=== PATIENT | female | born 1995 | race Caucasian/White ===

== ENCOUNTER 2022-10-06 19:37 | Outpatient (REF) | payer BC, SELFPAY ==
[2022-10-12 15:08] LABS: Age Gdln ACOG Testing Note (.); IGP, rfx Aptima HPV ASCU Note (.)
== END 2022-10-06 19:38 | disposition home or self-care (01) ==
LOC: LAB 19:37
PROVIDERS: Visit Provider Physician Assistant
DX: Z01.419 Encounter for gynecological examination (general) (routine) without abnormal findings (principal)
CPT/HCPCS: G0145

== ENCOUNTER 2023-01-13 08:08 | Outpatient (OUT) | payer BC, SELFPAY ==
[2023-01-13 08:53] LABS: Estimated Average Glucose 91 mg/dL; Glycohemoglobin A1C 4.8 % (4.5-6.2)
[2023-01-13 09:30] LABS: Alanine Aminotransferase 17 U/L (14-59); Albumin Globulin Ratio 0.7; Albumin Level 3.1 g/dL (3.4-5.0); Alkaline Phosphatase 44 U/L (46-116); Anion Gap 12.8; Aspartate Amino Transferase 11 U/L (15-37); BUN Creatinine Ratio 21.1; Bilirubin Total 0.6 mg/dL (0.2-1.0); Calcium 8.5 mg/dL (8.5-10.1); Carbon Dioxide 26.3 mmol/L (21.0-32.0); Chloride 102 mmol/L (98-107); Chol HDL Ratio 3.4; Cholesterol 148 mg/dL (<=200); Estimated GFR (African America >60 (>=60); Estimated GFR (Non-African Ame >60 (>=60); Globulin 4.7 g/dL; Glucose 77 mg/dL (74-106); HDL Cholesterol 43 mg/dL (40-60); Potassium 4.1 mmol/L (3.5-5.1); Sodium 137 mmol/L (136-145); Total Protein 7.8 g/dL (6.4-8.2); Triglycerides 206 mg/dL (<=150); VLDL CHOLESTEROL 41.2 mg/dL
[2023-01-13 09:46] LABS: TSH W/ REFLEX FT4 4.413 (0.358-3.740)
[2023-01-13 09:49] LABS: Free T4 1.26 ng/dL (0.76-1.46)
== END 2023-01-13 08:09 | disposition home or self-care (01) ==
LOC: LAB 08:11
DX: Z00.00 Encounter for general adult medical examination without abnormal findings (principal); E78.1 Pure hyperglyceridemia; E55.9 Vitamin D deficiency, unspecified; E03.9 Hypothyroidism, unspecified; E66.01 Morbid (severe) obesity due to excess calories
CPT/HCPCS: 36415; 80053; 80061; 82306; 83036; 84439; 84443

== ENCOUNTER 2023-05-05 08:58 | Outpatient (OUT) | payer BC, SELFPAY ==
--- OUTSIDE RECORDS SUMMARY | 2023-05-05 09:04 | XMS_ITS | CCD ---
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 Name Role Phone DR MELIA PROCTOR Admitting Unavailable DR MELIA PROCTOR Attending Unavailable [facility] [place] Primary Care Unavailable DR MELIA PROCTOR Consulting Unavailable CHELLE BORRERO Attending Unavailable Allergies Allergy Classification Reported Allergen(s) Allergy Type Date of Onset Reaction(s) Facility (1 source) Doxycycline Drug Allergy 09-27-2019 [facility] (1 source) Vitamin A Drug Allergy 09-27-2019 [facility] Problems Problem Classification Problem Date Documented Date Episodic/Chronic Immunizations and screening for infectious disease (1 source) Encounter for screening for human papillomavirus (HPV); Translations: [ENC SCREENING HUMAN PAPILLOMAVIRUS] Onset: 06-12-2021 Episodic Other screening for suspected conditions (not mental disorders or infectious disease) (4 sources) Encounter for screening for malignant neoplasm of cervix; Translations: [ENC SCREENING MALIG NEOPLASM CERV] Onset: 06-10-2021 Episodic Results Test Name Value Interpretation Reference Range Facil ity PAP ACOG PANEL 2: 21 to 29on 06-17-2021 . . Normal [facility] Comment on above: Performed By: #### [id number] #### [facility] [address] [address] [address] Jamil Caldwell Age Gdln ACOG Testing 21- Normal [facility] Comment on above: Performed By: #### [id number] #### [facility] [address] [address] [address] Jamil Caldwell DIAGNOSIS: Comment [facility] Comment on above: Result Comment: NEGA TIVE FOR INTRAEPITHELIAL LESION OR MALIGNANCY. Performed By: #### [id number] #### [facility] [address] [place] [address] Dr. Jamil Caldwell Methodology: Comment Normal [facility] Comment on above: Result Comment: This liquid based ThinPrep(R) pap test was screened with the use of an image guided system. Performed By: #### [id number] #### [facility] [address] [place] [address] Dr. Jamil Caldwell Note: Comment Normal [facility] Comment on above: Result Comment: The Pap smear is a screening test designed to aid in the detection of premalignant and malignant conditions of the uterine cervix. It is not a diagnostic procedure and should not be used as the sole means of detecting cervical cancer. Both false-positive and false-negative reports do occur. . Performed By: #### [id number] #### [facility] [address] [place] [address] Dr. 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 Jamil Caldwell Reflex Criteria: Comment Normal [facility] Comment on above: Result Comment: The HPV DNA reflex criteria were not met with this specimen result therefore, no HPV testing was performed. . Performed By: #### [id number] #### [facility] [address] [place] [address] Dr. Jamil Caldwell Specimen adequacy: Comment Normal [facility] Comment on above: Result Comment: Sati sfactory for evaluation. Endocervical and/or squamous metaplastic cells (endocervical component) are present. Performed By: #### 4 [id number] #### [facility] [address] [place] [address] Dr. Jamil Caldwell Formson 05-11-2021 Forms [id number] D:127 Normal [facility] Physician Referralon 022 Physician Referral [id number] CD:127 Normal [facility] Ambulatory Visit Summaryon 0 05-06-2021 Ambulatory Visit Summary CHELLE HOUSE :1995 Visit Date:05/06/2021 Ambulatory Visit Instructions Your Diagnosis Recurrent UTI Tests Performed Urnls Dip Stick Auto w/o Microscopy POC 61692 Your Care Team Attending Physician - SHRUTHI WILSON PA-C Primary Care Physician - Melia PROCTOR DO Referring Physician - Melia PROCTOR DO This Is Your Medications List Contact prescribing physician if questions or concerns cetirizine (Zyrtec) desogestrel-ethinyl estradiol ethinyl estradiol-norgestimate (Sprintec oral tablet) Procedures Performed None. Discharge Vitals Heart Rate (Peripheral) 79 Respiratory Rate 16 Blood Pressure 153/93 Height 170.0 cm Height 170 cm Weight 116.9 kg Weight 116.9 kg BMI 40.45 What to do next You Need to Schedule the Following Appointments Follow Up with SHRUTHI WILSON PA-C, URL When: Where: [address] [place] [address] [facility] (1) Medications What How Much When Instructions Unchanged cetirizine (Zyrtec) 10 Milligram By Mouth Every day Contact prescribing physician if questions or concerns Unchanged desogestrel-ethinyl estradiol By Mouth Every day Contact prescribing physician if questions or concerns Unchanged ethinyl estradiol-norgestimate (Sprintec oral tablet) 1 Tablets By Mouth Every day Contact prescribing physician if questions or concerns Test Results Urnls Dip Stick Auto w/o Microscopy POC 20724 (05/06/2021) Bilirubin Urine Dipstick - Negative Blood Urine Dipstick - Negative Glucose Urine Dipstick - Negative Ketones Urine Dipstick - Negative Leukocytes Urine Dipstick - Negative Nitrite Urine Dipstick - Negative Protein Urine Dipstick - Negative Specific [place] Urine Dipstick - 1.010 Urine Appearance Urine Dipstick - Clear Urine Color Urine Dipstick - Yellow Urobilinogen Urine Dipstick - Normal 0.2-1 EU/dl pH Urine Dipstick - 6.5 Allergies tetracyclines (Blindness - both eyes) vitamin A (Nausea and vomiting) Problems Ongoing - Any problem that you are currently receiving treatment for. 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 The urinary tract includes the kidneys, ureters, bladder, and urethra. These organs make, store, and get rid of urine in the body. Your health care provider may use other names to describe the infection. An upper UTI affects the ureters and kidneys (pyelonephritis). A lower UTI affects the bladder (cystitis) and urethra (urethritis). What are the causes? Most urinary tract infections are caused by bacteria in your genital area, around the entrance to your urinary tract (urethra). These bacteria grow and cause inflammation of your urinary tract. What increases the risk? You are more likely to develop this condition if: ? You have a urinary catheter that stays in place (indwelling). ? You are not able to control when you urinate or have a bowel movement (you have incontinence). ? You are female and you: ? Use a spermicide or diaphragm for control. ? Have low estrogen levels. ? Are . ? You have certain genes that increase your risk (genetics). ? You are sexually active. ? You take antibiotic medicines. ? You have a condition that causes your flow of urine to slow down, such as: ? An enlarged prostate, if you are male. ? Blockage in your urethra (stricture). ? A kidney stone. ? A nerve condition that affects your bladder control (neurogenic bladder). ? Not getting enough to drink, or not urinating often. ? You have certain medical conditions, such as: ? Diabetes. ? A weak disease-fighting system (immunesystem). ? Sickle cell disease. ? Gout. ? Spinal cord injury. What are the signs or symptoms? Symptoms of this condition include: ? Needing to urinate right away (urgently). ? Frequent urination or passing small amounts of urine frequently. ? Pain or burning with urination. ? Blood in the urine. ? Urine that smells bad or unusual. ? Trouble urinating. ? Cloudy urine. ? Vaginal discharge, if you are female. ? Pain in the abdomen or the lower back. You may also have: ? Vomiting or a decreased appetite. ? Confusion. ? Irritability or tiredness. ? A fever. ? Diarrhea. The first symptom in older adults may be confusion. In some cases, they may not have any symptoms until the infection has worsened. How is this diagnosed? This condition is diagnosed based on your medical history and a physical exam. You may also have other tests, including: ? Urine tests. ? Blood tests. ? Tests for sexually transmitted infections (STIs). If you have had more than one UTI, a cystoscopy or imaging studies may be done to deter (more content not included)... Normal [facility] Patient Educationon 05-07-19 Patient Education Obstetrics and Gynecology Urinary Tract Infection, Adult A urinary tract infection (UTI) is an infection of any part of the urinary tract. The urinary tract includes the kidneys, ureters, bladder, and urethra. These organs make, store, and get rid of urine in the body. Your health care provider may use other names to describe the infection. An upper UTI affects the ureters and kidneys (pyelonephritis). A lower UTI affects the bladder (cystitis) and urethra (urethritis). What are the causes? Most urinary tract infections are caused by bacteria in your genital area, around the entrance to your urinary tract (urethra). These bacteria grow and cause inflammation of your urinary tract. What increases the risk? You are more likely to develop this condition if: ? You have a urinary catheter that stays in place (indwelling). ? You are not able to control when you urinate or have a bowel movement (you have incontinence). ? You are female and you: ? Use a spermicide or diaphragm for control. ? Have low estrogen levels. ? Are . ? You have certain genes that increase your risk (genetics). ? You are sexually active. ? You take antibiotic medicines. ? You have a condition that causes your flow of urine to slow down, such as: ? An enlarged prostate, if you are male. ? Blockage in your urethra (stricture). ? A kidney stone. ? A nerve condition that affects your bladder control (neurogenic bladder). ? Not getting enough to drink, or not urinating often. ? You have certain medical conditions, such as: ? Diabetes. ? A weak disease-fighting system (immunesystem). ? Sickle cell disease. ? Gout. ? Spinal cord injury. What are the signs or symptoms? Symptoms of this condition include: ? Needing to urinate right away (urgently). ? Frequent urination or passing small amounts of urine frequently. ? Pain or burning with urination. ? Blood in the urine. ? Urine that smells bad or unusual. ? Trouble urinating. ? Cloudy urine. ? Vaginal discharge, if you are female. ? Pain in the abdomen or the lower back. You may also have: ? Vomiting or a decreased appetite. ? Confusion. ? Irritability or tiredness. ? A fever. ? Diarrhea. The first symptom in older adults may be confusion. In some cases, they may not have any symptoms until the infection has worsened. How is this diagnosed? This condition is diagnosed based on your medical history and a physical exam. You may also have other tests, including: ? Urine tests. ? Blood tests. ? Tests for sexually transmitted infections (STIs). If you have had more than one UTI, a cystoscopy or imaging studies may be done to determine the cause of the infections. How is this treated? Treatment for this condition includes: ? Antibiotic medicine. ? Kggt-gmu-jeajaxl medicines to treat discomfort. ? Drinking enough water to stay hydrated. If you have frequent infections or have other conditions such as a kidney stone, you may need to see a health care provider who specializes in the urinary tract (urologist). In rare cases, urinary tract infections can cause sepsis. Sepsis is a life-threatening condition that occurs when the body responds to an infection. Sepsis is treated in the hospital with IV antibiotics, fluids, and other medicines. Follow these instructions at home: Medicines ? Take kohy-daq-sswkyam and prescription medicines only as told by your health care provider. ? If you were prescribed an antibiotic medicine, take it as told by your health care provider. Do not stop using the antibiotic even if you start to feel better. General instructions ? Make sure you: ? Empty your bladder often and completely. Do not hold urine for long periods of time. ? Empty your bladder after sex. ? Wipe from front to back after a bowel movement if you are female. Use each tissue one time when you wipe. ? Drink enough fluid to keep your urine pale yellow. ? Keep all follow-up visits as told by your health care provider. This is important. Contact a health care provider if: ? Your symptoms do not get better after 1?2 days. ? Your symptoms go away and then return. Get help right away if you have: ? Severe pain in your back or your lower abdomen. ? A fever. ? Nausea or vomiting. Summary ? A urinary tract infection (UTI) is an infection of any part of the urinary tract, which includes the kidneys, ureters, bladder, and urethra. ? Most urinary tract infections are caused by bacteria in your genital area, around the entrance to your urinary tract (urethra). ? Treatment for this condition often includes antibiotic medicines. ? If you were prescribed an antibiotic medicine, take it as told by your health care provider. Do not stop using the antibiotic even if you start to feel better. ? Keep all follow-up visits as told by your health care provider. This is important. This in (more content not included)... Normal [facility] Urology Office/Clinic Noteon 05-06-2021 Urology Office/Clinic Note Chief Complaint New Patient Recurrent UTI HPI Staff Chelle is here today as a new patient referred for recurrent UTI's. Had two UTI, first one in January and the second one middle of March the only symptom she had for both of them was bad back pain. Pt states she did have an ovarian cyst back in July that burst and she said she had one other one after that but not as bad. Dysuria: _Denies Incomplete bladder emptying: _Denies Hematuria: _Denies Frequency: _Every 2-3 hours. Urgency: _Denies Nocturia: _1 time a night due to the urge Stream: _steady stream Leaking: _Denies Post void dripping: _Denies Wearing pads/ Depends: _Denies Urge incontinence: _Denies Stress incontinence: _Denies Incontinence without Sensory Awareness: _Denies Abdominal pain: _Yes sometimes will have pelvic pain last time was in March. Flank pain: _Yes last time she felt the pain was in March Sexual complaints: _ History of Present Illness Tests reviewed: reviewed UA I have reviewed the previous health record information and history for this patient from Dr. Proctor. I have reviewed and verified the staff HPI to be accurate for this encounter. There have been no associated fever, chills, flank pain, or blood in the urine. Denies any urinary infections since last encounter. Review of Systems PHQ Score Initial Depression Screen Score: 0 ROS - Provider Constitutional: denies weight loss, denies hot flashes. Eyes: denies eye problems. Gastrointestinal: denies nausea, denies vomiting. Cardiovascular: denies chest pain or angina. Integumentary: no dryness Musculoskeletal: denies musculoskeletal symptoms. ENMT: denies otolaryngeal symptoms. Respiratory: no shortness of breath. Heme/Lymph: denies easy bleeding tendency, denies easy bruising tendency. Psychiatric: no confusion, no anxiety. Genitourinary: See HPI. Physical Exam Vitals & Measurements HR: 79(Peripheral) RR: 16 BP: 153/93 HT: 170.0 cm HT: 170 cm WT: 116.9 kg WT: 116.9 kg BMI: 40.45 General Appearance: alert , no acute distress, well nourished, well developed female. Head: normocephalic . Eyes: normal orbit and globe. ENMT: normal examination of external ears. Chest: Lungs CTA, respirations non labored . Cardiovascular: regular rate and rhythm. Abdomen: soft, non distended, no tenderness, no mass or organomegaly, no hernia. Genitourinary: bladder nonpalpable, no flank tenderness. Lymph Nodes: unremarkable palpation of the cervical area. Skin: warm, dry, no bruising. Psychiatric: cooperative, affect appropriate for age, normal judgement, euthymic mood. Assessment/Plan 1. Recurrent UTI (N39.0: Urinary tract infection, site not specified) Patient state she has had two infections recently first one in January and the second one middle of March after never having one previously in her lifetime. The only symptom she had for both of them was severe bilateral flank pain. No fever or chills, malaise or myalgia, nausea or vomiting. Resolved with oral abx. No urine cx available for review. Current UA shows no microhematuria and no signs of infection. PVR is low today. Today we discussed the following methods to decrease frequency of UTIs: 1) increase fluids 2) I discussed that there is evidence that herbal supplements may help - cranberry, probiotics, and d-mannose. 3) proper hygiene habits (wipe front to back every time, avoid baths & hot tubs, avoid any scented ELECTRONIC SYSTEMS TECHNICIAN products, urinate after sexual activity, etc) advised to change clothes quickly after exercising, especially on her [place] Pt will call next time she encounters these symptoms to allow us to send UA for culture. She will try measures noted above. She will watch for connection btwn UTI and sexual activity. If UTIs are culture proven and continue, we will need to proceed with further eval (rule out stones, possible cysto, etc). If pain episodes persist without cx-proven UTI then that will lead us down a different evaluation pathway. *Pt does mention that her sister has a rare autoimmune condition MPGN type II (membranoproliferative glomerulonephritis). Will keep this in mind. Current UA is negative for protein and blood.* Follow-up With When Contact Information SHRUTHI WILSON PA-C, URL [address] [place] [address] Business (1) Additional Instructions: Patient Education Urinary Tract Infection, Adult I, Luz Marina Soriano , personally scribed for Shruthi Wilson on 05/06/2021 15:17:24. . Documentation recorded by the scribmoira Soriano accurately reflects the services(s) I performed and decisions made by me. Authenticated by Shruthi Wilson PA-C on 05/06/2021 15:38:19. 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 Medications desogestrel-e (more content not included)... Normal [facility] Comment on above: Result Comment: Elec tronically Signed By: SHRUTHI WILSON PA-C\.br\Date and Time Signed: 05/06/21 15:39 EST\.br\Electronically Co-Signed By: Luz Marina Soriano\.br\Date and Time Co-Signed: 05/06/21 15:17 EST Encounters Encounter Date Encounter Type Care Provider Facility Start: 01-24-2023 End: 01-24-2023 ambulatory CHELLE BORRERO Not Available Start: 06-10-2021 End: 06-10-[address] MELIA PROCTOR Facility: Payers Date Payer Category Payer Unknown [id number] 1995 Unknown [id number] 1995 Unknown [id number] 1959 Unknown [id number] Summary Purpose Family History No Family History Records FoundNo Family History Records FoundNo Family History Records Found Advance Directives No Advanced Directives Records FoundNo Advanced Directives Records FoundNo Advanced Directives Records Found Additional Source Comments INFORMATION SOURCE (unrecogn ized section and content) DATE CREATED AUTHOR 05/17/2021 [facility] DATE CREATED AUTHOR AUTHOR'S ORGANIZ ATION 06/23/2021 [facility] DATE CREATED AUTHOR AUTHOR'S ORGANIZ ATION 01/24/2023 [facility] FOR RECORDS PERTAINING TO PATIENTS WHO ARE OR HAVE BEEN ENROLLED IN A CHEMICAL DEPENDENCY/SUBSTANCEABUSE PROGRAM, SOME INFORMATION MAY BE OMITTED. This clinical summary was aggregated from multiple sources. Caution should be exercised in using it in the provision of clinical care. This summary normalizes information from multiple sources, and as a consequence, information in this document may materially change the coding, format and clinical context of patient data. In addition, data may be omitted in some cases. CLINICAL DECISIONS SHOULD BE BASED ON THE PRIMARY CLINICAL RECORDS. [facility] [employer] [facility]. provides no warranty or guarantee of the accuracy or completeness of information in this document.
[2023-05-05 12:50] LABS: TSH W/ REFLEX FT4 3.611 uIU/mL (0.358-3.740)
== END 2023-05-05 08:59 | disposition home or self-care (01) ==
LOC: LAB 08:59
DX: E03.9 Hypothyroidism, unspecified (principal)
CPT/HCPCS: 36415; 84443

== ENCOUNTER 2023-10-17 20:27 | Outpatient (REF) | payer BC, SELFPAY ==
--- OUTSIDE RECORDS SUMMARY | 2023-10-17 20:29 | XMS_ITS | CCD ---
Author Organization [facility] CliniSyal Care Team Providers Care Maintenance Tech Name Role Phone DR MELIA PROCTOR Admitting Unavailable FABRICE, DR CÁRDENAS Attending Unavailable MIS, DR COLLINS Primary Care Unavailable DR MELIA PROCTOR Consulting Unavailable SARAH BORRERO Attending Unavailable ADAIR, Attending Unavailable PETITTHoney, RELL Hill Attending Unavailable SARAH BORRERO Attending Unavailable PETITTHoney, RELL Hill Attending Unavailable PETITTHoney, RELL Hill Attending Unavailable MELIA PROCTOR Attending Unavailable Allergies Allergy Classification Reported Allergen(s) Allergy Type Date of Onset Reaction(s) Facility (1 source) Doxycycline Drug Allergy 09-27-2019 [facility] Repository (1 source) Vitamin A Drug Allergy 09-27-2019 [facility] Problems Problem Classification Problem Date [...] 21 to 29on 06-17-2021 . . Normal [facility] Comment on above: Performed By: #### [id number] #### [facility] [address] [address] [address] Jamil Caldwell Age Gdln ACOG Testing - Normal [facility] Comment on above: Performed By: #### [id number] #### [facility] [id number] Jamil Caldwell DIAGNOSIS: Comment [facility] Comment on above: Result Comment: NEGA TIVE FOR INTRAEPITHELIAL LESION OR MALIGNANCY. Performed By: #### 4 [id number] #### [facility] [address] [place] [address] Dr. Jamil Caldwell Methodology: Comment [facility] Comment on above: Result Comment: This liquid based ThinPrep(R) pap test was screened with the use of an image guided system. Performed By: #### [id number] #### [facility] [address] [place] [address] Dr. Jamil Caldwell Note: Comment Normal [facility] Comment on above: Result Comment: The Pap smear is a screening test designed to aid in the detection of premalignant and malignant conditions of the uterine cervix. It is not a diagnostic procedure and should not be used as the sole means of detecting cervical cancer. Both false-positive and false-negative reports do occur. . Performed By: #### [id number] #### [facility] [address] [place] [address] Dr. Jamil Caldwell Performed by: Comment Normal [facility] Comment on above: Result Comment: Eve Xiao Director Of Labor And Delivery (ASCP) Performed By: #### 4 [id number] #### [facility] [address] [place] [address] Dr. Jamil Caldwell Reflex Criteria: Comment [facility] Comment on above: Result Comment: The HPV DNA reflex criteria were not met with this specimen result therefore, no HPV testing was performed. . Performed By: #### 4 [id number] #### [facility] [address] [place] [address] Dr. Jamil Caldwell Specimen adequacy: Comment Normal [facility] Comment on above: Result Comment: Sati sfactory for evaluation. Endocervical and/or squamous metaplastic cells (endocervical component) are present. Performed By: #### 4 [id number] #### [facility] [address] [place] [address] Dr. Jamil Caldwell Formson 05-11-2021 Forms [id number] D:127 Normal [facility] Physician Referralon 022 Physician Referral [id number] CD:[address] [facility] Ambulatory Visit Summaryon 0 05-06-2021 Ambulatory Visit Summary SARAH HOUSE :1995 Visit Date:05/06/2021 Ambulatory Visit Instructions Your Diagnosis Recurrent UTI Tests Performed Urnls Dip Stick Auto w/o Microscopy POC 96341 Your Care Team Attending Physician - VAISHALI WILSON PA-C Primary Care Physician - Melia [...] Schedule the Following Appointments Follow Up with VAISHALI WILSON PA-C, URL [facility]: [facility] [address] [facility] [place] [address] Fingerprint (1) Medications What How Much When Instructions [...] Urnls Dip Stick Auto w/o Microscopy POC 59535 (05/06/2021) Bilirubin Urine Dipstick - Negative Blood Urine Dipstick - Negative Glucose Urine Dipstick - Negative Ketones Urine Dipstick - Negative Leukocytes Urine Dipstick - Negative Nitrite Urine Dipstick - Negative Protein Urine Dipstick - Negative Specific [place] Urine Dipstick - 1.010 Urine Appearance Urine [...] deter (more content not included)... Normal [facility] Patient Educationon 05-07-19 Patient Education Obstetrics [...] this condition includes: ? Antibiotic medicine. ? Hblz-obl-ggorpgf medicines to treat discomfort. ? Drinking enough [...] these instructions at home: Medicines ? Take ezxn-jay-luuvkti and prescription medicines only as told by [...] This in (more content not included)... Normal [facility] Urology Office/Clinic Noteon 05-06-2021 Urology Office/Clinic Note Chief Complaint New Patient Recurrent UTI HPI Staff is here today as a new patient [...] baths & hot tubs, avoid any scented [employer] products, urinate after sexual activity, etc) advised [...] and blood.* Follow-up With When Contact Information VAISHALI WILSON PA-C, URL [address] [facility] [address] Business (1) Additional Instructions: Patient Education Urinary Tract Infection, Adult I, Luz Marina Soriano , personally scribed for Vaishali Wilson on 05/06/2021 15:17:24. . Documentation recorded by the scribmoira Soriano accurately reflects the services(s) I performed and decisions made by me. Authenticated by Vaishali Wilson PA-C on 05/06/2021 15:38:19. 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 Medications desogestrel-e (more content not included)... Normal [facility] Comment on above: Result Comment: Elec tronically Signed By: VAISHALI WILSON PA-C\.br\Date and Time Signed: 05/06/21 15:39 EST\.br\Electronically Co-Signed By: Luz Marina Soriano\.br\Date and Time Co-Signed: 05/06/21 15:17 EST Encounters Encounter Date Encounter Type Care Provider Facility Start: 10-17-2023 End: 10-17-2023 ambulatory MELIA FABRICE Not Available Start: 09-22-2023 End: 09-22-2023 ambulatory RELL A PETITTI Not Available Start: 09-07-2023 End: 09-07-2023 ambulatory RELL A PETITTI Not Available Start: 08-17-2023 End: 08-17-2023 ambulatory SARAH BORRERO Not Available Start: 08-01-2023 End: 08-01-2023 ambulatory RELL CRAMER Not Available Start: 07-13-2023 End: 07-13-2023 ambulatory SARAH BORRERO Not Available Start: 01-24-2023 End: 01-24-2023 ambulatory SARAH BORRERO Not Available Start: 06-10-2021 End: 06-10-[address] MELIA PROCTOR Facility: Payers Date Payer Category Payer Unknown [id number] 1995 Unknown [id number] 2.16.84 [id number] 1995 Unknown [id number] 2.16.84 [id number] 1995 Unknown [id number] 2.16.84 [id number] 1995 Unknown [id number] 2.16.84 [id number] 1995 Unknown [id number] 2.16.84 [id number] 1995 Unknown [id number] 2.16.84 [id number] 1995 Unknown [id number] 2.16.84 [id number] 1995 Unknown [id number] [id number] .[id number] 1959 Unknown [id number] Summary Purpose Family History No Family History Records FoundNo Family History Records FoundNo Family History Records Found Advance Directives No Advanced Directives Records FoundNo Advanced Directives Records FoundNo Advanced Directives Records Found Additional Source Comments INFORMATION SOURCE (unrecogn ized section and content) DATE CREATED AUTHOR 05/17/2021 [facility] DATE CREATED AUTHOR AUTHOR'S ORGANIZ ATSANIA 06/23/2021 [facility] DATE CREATED AUTHOR AUTHOR'S JAMES NEVAREZ 10/17/[address] [facility] d[facility] Specialists EPIC FOR RECORDS PERTAINING TO PATIENTS WHO ARE [...] BE BASED ON THE PRIMARY CLINICAL RECORDS. [facility]. provides no warranty or guarantee of the accuracy or completeness of information in this document.
[2023-10-21 19:10] LABS: Age Gdln ACOG Testing Note (.); IGP, rfx Aptima HPV ASCU Note (.)
== END 2023-10-17 20:28 | disposition home or self-care (01) ==
LOC: LAB 20:27
PROVIDERS: Visit Provider Obstetrics & Gynecology
DX: Z01.419 Encounter for gynecological examination (general) (routine) without abnormal findings (principal)
CPT/HCPCS: 88175

== ENCOUNTER 2025-02-02 07:55 | Outpatient (OUT) | payer BC, SELFPAY ==
--- OUTSIDE RECORDS SUMMARY | 2025-02-02 08:00 | XMS_ITS | CCD ---
Author Organization [facility] Care Team Providers Care Sociology Teacher Name Role Phone DR RODRIGUE PROCTOR Admitting Unavailable ESTHELA, DR CÁRDENAS Attending Unavailable MISC, DR COLLINS Primary Care Unavailable DR RODRIGUE PROCTOR Consulting Unavailable Kampfer WAREHOUSE FOREMAN, Chelle Unavailable Vaishali Reyes MD Primary Care Provider RELL CRAMER Attending Unavailable KAMPFER, CHELLE Attending Unavailable KAMPFER, CHELLE Referring Unavailable AYDE KIM Attending Unavailable KAMPFER, CHELLE Referring Unavailable AYDE KIM Attending Unavailable KAMPFER, CHELLE Referring Unavailable PRESLEY ALARCON Attending Unavailable KAMPFER, CEHLLE Referring Unavailable KAMPFER, CHELLE Attending Unavailable PRESLEY ALARCON Attending Unavailable KAMPFER, CHELLE Referring Unavailable MILLY OSMAN Attending Unavailable KAMPFER, CHELLE Referring Unavailable KAMPFER, CHELLE Referring Unavailable Unavailable Primary Care Provider Unavailjosé antonio e Chelle Santiago APRN Primary Care Provider KAMPFER, CHELLE Referring Unavailable VILJOEN, STEPHANUS Attending Unavailable VILJOEN, STEPHANUS Admitting Unavailable VILJOEN, STEPHANUS Attending Unavailable KAMPFER, CHELLE Primary Care Unavailable VILJOEN, STEPHANUS Referring Unavailable KAMPFER, CHELLE Primary Care Unavailable VILJOEN, STEPHANUS Attending Unavailable VILJOEN, STEPHANUS Referring Unavailable VILJOEN, STEPHANUS Attending Unavailable KAMPFER, CHELLE Primary Care Unavailable VILJOEN, STEPHANUS Referring Unavailable VILJOEN, STEPHANUS Attending Unavailable KAMPFER, CHELLE Primary Care Unavailable VILJOEN, STEPHANUS Referring Unavailable Allergies Allergy ClassificationReported Allergen(s)Allergy TypeDate of OnsetReaction(s) Facility (1 source)DoxycyclineDrug Rbwxrpv82-10-1009Yts [facility] Repository (1 source)Vitamin ADrug Qvgwqlm99-83-7189Oig [facility] Repository (20 sources)DoxycyclineDrug Zcywueo67-68-1561[facility] Work Phone: (20 sources)Lactose (non-medical use)Allergy to dmwuzfieg66-21-7253Y[facility] (20 sources)TetracyclineDrug Mtfioxd05-79-2917EslbyOSWL [facility] (20 sources)Vitamin ADrug Wmoprbc12-52-6047CX[facility] (2 sources)Tetracycline (class of antibiotic)Propensity to adverse reactions to rsgd06-13-5209Ysmhaa ChangeSumma Health Medications Current Medications MedicationDrug Class(es)DatesSig (Normalized)Sig (Original)acetaminophen 500 mg oral tablet (19 sources)Start: 13-26-5728qqln 1 tablet by mouth every six hours as needed acetaminophen 500 MG tablet Take 1 tablet by mouth every 6 hours as needed for Mild Pain. 30 iedagu1612/18/2024 ActiveStart: 12-18-2024 End: 67-40-6125kpkg 1 tablet by mouth every four hours as wuejos442 mg, Oral, EVERY 4 HOURS NEEDED, Starting on Tue12/18/24 at 1027, Until Tue12/18/24 at 1442, Mild Pain, Maximum dose of acetaminophen is 4000 mg from all sources in 24 hours., Post-op/Post-ProcStart: 12-18-2024 End: 74-14-8138kcnl 4000 mg by mouth every twenty-four eqgpr430 mg, Oral, ONCE, 1 dose, On Tue12/18/24 at 0530, Maximum dose of acetaminophen is 4000 mg from a ll sources in 24 hours., Pre-op/Pre-Procacetaminophen (Tylenol) 160 MG chewable tablet Chew 250 mg if needed for mild pain ActivebuPROPion hydrochloride 100 mg oral tablet (20 sources)AminoketoneStart: 58-17-6167durv 1 tablet by mouth once daily buPROPion (Wellbutrin) 100 MG tablet Indications: Morbid obesity (CMS-HCC) TAKE 1 TABLET BY MOUTH ONCE A DAY *TAKE WITH NALTREXONE* 90 tablet 1 11/05/2024 ActiveStart: 31-80-9748ctwy 1 tablet by mouth once dailybuPROPion (Wellbutrin) 100 MG tablet Indications: Morbid obesity (CMS-HCC) TAKE 1 TABLET BY MOUTH ONCE A DAY *TAKE WITH NALTREXONE* 30 tablet 1 08/06/2024 ActiveStart: 49-44-1368yctt 1 tablet by mouth once dailybuPROPion (Wellbutrin) 100 MG tablet Indications: Morbid obesity (CMS/HCC) TAKE 1 TABLET BY MOUTH ONCE A DAY *TAKE WITH NALTREXONE* 30 tablet 1 06/13/2024 ActiveStart: 10-04-2023 End: 77-07-2273nfsh 1 tablet by mouth once dailybuPROPion (Wellbutrin) 100 MG tablet Indications: Morbid obesity (CMS/HCC) TAKE 1 TABLET BY MOUTH ONCE A DAY *TAKE WITH NALTREXONE* 30 tablet 1 04/13/2024 06/13/2024 Discontinuedcetirizine hydrochloride 10 mg oral tablet (20 sources)Histamine-1 Receptor Antagonisttake 1 tablet by mouth once daily Cetirizine 10 MG tablet Take 1 tablet by mouth daily. Activecyclobenzaprine hydrochloride 10 mg oral tablet (13 sources)Muscle RelaxantStart: 69-94-6808tykr 1 tablet by mouth three times daily as needed for muscle spasmsCyclobenzaprine 10 MG tablet Take 1 tablet by mouth 3 times daily as needed for Muscle spasms. 15 tablet 12/18/2024 Active Start: 11-05-2024 End: 79-14-3466Fvrpgjaknstgvla 10 MG tablet Take 1 tablet by mouth as needed. 11/05/2024 Activedesogestrel 0.15 mg / ethinyl estradiol 0.03 mg oral tablet (20 sources)Progestin, EstrogenStart: 48-87-2334Lthy 0.15-30 MG-MCG tablet Indications: Encounter for surveillance of contraceptive pills TAKE 1 TABLET BY MOUTH EVERY DAY *ON FOR 4 MONTHS, OFF 1 WEEK, THEN RESTART* 28 tablet 12 10/26/2024 ActiveStart: 05-26-2022 End: 84-63-4778ipzksfsocoq-ethinyl estradiol (Apri) 0.15-30 MG-MCG tablet Indications: Encounter for surveillance of contraceptive pills Take 1 tablet by mouth Daily 28 tablet 12 10/05/2023 10/03/2024 ActiveDesogestrel-Ethinyl Estradiol (APRI PO) Take by mouth at bedtime. Activeibuprofen 20 mg/ml oral suspension (3 sources)Nonsteroidal Anti-inflammatory Drugtake 400 mg by mouth every six hours as neededIbuprofen 200 MG/10ML oral suspension Take 20 mL by mouth every 6 hours as needed for Mild Pain. Activemethocarbamol 500 mg oral tablet (9 sources)Muscle RelaxantStart: 11-14-2024 End: 70-35-8690wljk 1 tablet by mouth four times daily as needed for muscle spasmsmethocarbamol (Robaxin) 500 MG tablet Indications: Acute bilateral low back pain with right-sided sciatica Take 1 tablet (500 mg) by mouth 4 (four) times a day as needed for muscle spasms for up to 5days 20 tablet 11/14/2024 Activenaltrexone hydrochloride 50 mg oral tablet (20 sources)Opioid AntagonistStart: 07-13-2023 End: 58-62-7069juoj 0.5 tablet by mouth once dailynaltrexone (Depade) 50 MG tablet Indications: Morbid obesity ([facility]-HCC) Take 0.5 tablets (25 mg) by mouth Daily Take with bupropion morning dose 45 tablet 1 01/20/2024 Activetake 1 tablet by mouth every twenty-four hoursNaltrexone 50 MG tablet Take 1 tablet by mouth every evening. ActiveoxyCODONE hydrochloride 5 mg oral tablet (2 sources)Opioid AgonistStart: 12-18-2024 End: 33-42-6849schx 1 tablet by mouth every six hours as neededoxyCODONE 5 MG tablet Indications: Obesity, morbid, BMI 40.0-49.9 Take 1 tablet by mouth every 6 hours as needed for up to 7 days. 15 tablet 12/18/2024 12/25/2024 ActiveStart: 12-18-2024 End: 28-48-0580atzn 1 dose by mouth once5 mg, Oral, ONCE NEEDED, 1 dose, Starting on Tue12/18/24 at 0918, Until Tue12/18/24 at 1442, Moderate Pain, RecoverypredniSONE 20 mg oral tablet (6 sources)Start: 11-05-2024 End: 26-73-2740wbpr 1 tablet by mouth in the morningpredniSONE (Deltasone) 20 MG tablet Indications: Acute bilateral low back pain with right-sided sciatica Take 1 tablet (20 mg) by mouth in the morning and 1 tablet (20 mg) before bedtime. Do all thisfor 5 days. 10 tablet 11/05/2024 11/10/2024 Active Completed/Discontinued Medications MedicationDrug Class(es)DatesSig (Normalized)Sig (Original)Acetaminophen / oxyCODONE (1 source)Opioid AgonistStart: 12-18-2024 End: 56-27-0122tjyj 1 tablet by mouth every four hours as neededoxyCODONE- acetaminophen (PERCOCET) 5-325 MG per tablet 1 tabletaprepitant 40 mg oral capsule (1 source)Substance P/Neurokinin-1 Receptor AntagonistStart: 12-18-2024 End: 48-62-347066 mg, Oral, ONCE, 1 dose, On Tue12/18/24 at 0530, Administer 40 mg (1 capsule) ONCE at least 30 minutes prior to induction of anesthesia. Swallow capsules whole. Do NOT crush, chew, or open., Pre-op/Pre-Procaspirin 325 mg oral tablet (3 sources)Platelet Aggregation Inhibitor, Nonsteroidal Anti-inflammatory Drug End: 33-00-8565zjnc 1 tablet by mouth once dailyAspirin 325 MG tablet Take 1 tablet by mouth daily. 12/18/2024 Discontinued (Stop Taking at Discharge)calcium chloride 0.0014 meq/ml / potassium chloride 0.004 meq/ml / sodium chloride 0.103 meq/ml / sodium lactate 0.028 meq/ml injectable solution (2 sources)Start: 12-18-2024 End: 25-21-0395Umueercifox, at 20 mL/hr, CONTINUOUS, Starting on Tue12/18/24 at 0930, Until Tue12/18/24 at 1442,Recovery1 ml diphenhydrAMINE hydrochloride 50 mg/ml cartridge (1 source)Histamine-1 Receptor AntagonistStart: 12-18-2024 End: 35-12-695991.5 mg, Intravenous, EVERY 30 MINUTES NEEDED, 2 doses, Starting on Tue12/18/24 at 0918, Until Tue12/18/24 at 1442, Itching, FIRST Line, Use second dose only if first dose did not result in confusion . Do not give if age is > 65yo, Recovery2 ml fentaNYL 0.05 mg/ml injection (1 source)Opioid AgonistStart: 12-18-2024 End: 11-88-562008 mcg, Intravenous, Administer over 2 Minutes, EVERY 5 MINUTES NEEDED, 6 doses, Starting on Tue12/18/24 at 0918, Until Tue12/18/24 at 1442, Moderate Pain, Severe Pain, Recoverygabapentin 300 mg oral capsule (1 source)Anti-epileptic AgentStart: 12-18-2024 End: 22-02-6840sutl 1 dose by mouth hpxy196 mg, Oral, ONCE, 1 dose, On Tue12/18/24 at 0530, Pre-op/Pre-Proc1 ml hydrALAZINE hydrochloride 20 mg/ml injection (1 source)Arteriolar VasodilatorStart: 12-18-2024 End: mg, Intravenous, EVERY 15 MINUTES NEEDED, 4 doses, Starting on Tue12/18/24 at 0918, Until Tue12/18/24 at 1442, SECOND line HTN, For SBP > 180. Use if HR1 ml HYDROmorphone hydrochloride 1 mg/ml cartridge (1 source)Opioid AgonistStart: 12-18-2024 End: .5 mg, Intravenous, EVERY 10 MINUTES NEEDED, 8 doses, Starting on Tue12/18/24 at 0918, Until Tue12/18/24 at 1442, Moderate Pain, Severe Pain, Mild Pain, May give a total of 4mg in PACU., Recoverylabetalol hydrochloride 5 mg/ml injectable solution (1 source)beta-Adrenergic BlockerStart: 12-18-2024 End: mg, Intravenous, EVERY 15 MINUTES NEEDED, 4 doses, Starting on Tue12/18/24 at 0918, Until Tue12/18/24 at 1442, FIRST line HTN. , For SBP > 180. Hold if HR1 ml morphine sulfate 4 mg/ml cartridge (1 source)Opioid AgonistStart: 12-18-2024 End: 15-96-4410ggyf 2 mg intravenously every three hours as needed2 mg, Intravenous, EVERY 3 HOURS NEEDED, Starting on Tue12/18/24 at 0918, Until Tue12/18/24 mg7148, Other, Shivering, Recovery2 ml ondansetron 2 mg/ml injection (1 source)Serotonin-3 Receptor AntagonistStart: 12-18-2024 End: mg, Intravenous, ONCE NEEDED, 1 dose, Starting on Tue12/18/24 at 0918, Until Tue12/18/24 at 1442, Nausea / Vomiting, FIRST line antiemetic, Do not administer within 6 hours of intra-operative dose., Recovery Ondansetron 4mg/2ml (ZOFRAN) injection 4 mg (1 source)Start: 12-18-2024 End: 13-57-1947trdk 4 mg intravenously every four hours as neededOndansetron 4mg/2ml (ZOFRAN) injection 4 mgpovidone-iodine (3M SKIN and NASAL ANTISEPTIC) 5 % topical solution 1 Application (1 source)Start: 12-18-2024 End: Application, Nasal, 60 MIN PRE-OP, 1 dose, On Tue12/18/24 at 0530, (1) Use a tissue to clean theinside of both nostrils including the inside tip of the nostril. (2) Tilting the bottle slightly, dip one swab into solution and stir vigorously for 10 seconds. Withdraw the swab slowly to avoid wiping solution off during removal. (3) Insert swab comfortably into one nostril and rotate for 15 seconds covering all surfaces. Then focus on the inside tip of nostril and rotate for an additional 15 seconds. (4) Using a new swab, repeat steps 2 & 3 with the other nostril. (5) Repeat the application in both nostrils using a fresh swab each time. (6) Do not blow nose. If solution drips out of nose, it can be lightly dabbed with a tissue., Pre-op/Pre-Procprochlorperazine 5 mg/ml injectable solution (1 source)PhenothiazineStart: 12-18-2024 End: 14-63-6843unvf 5 mg intravenously every hour as needed5 mg, Intravenous, EVERY 1 HOUR NEEDED, 2 doses, Starting on Tue12/18/24 at 0918, Until Tue12/18/24 at 1442, Refractory Nausea Vomiting, SECOND line antiemetic, Do not administer within 6 hours of intra-operative dose. For IV route: dilute dose with 10mL normal saline and give by slow IV push at a rate of 5mg/min. Maximum of 40mg/day., Ipmvgaag070 ml sodium chloride 9 mg/ml injection (1 source)Start: 12-18-2024 End: 45-11-6617Stpvblbtkiw, at 75 mL/hr, CONTINUOUS, Starting on Tue12/18/24 at 1030, Until Tue12/18/24 at 1442,Post-op/Post-ProcVERIFY LINKED PATCH PLACEMENT (1 source)Start: 12-18-2024 End: 43-92-4986Puggk, EVERY 12 HOURS, First dose on Tue12/18/24 at 0900, Until Discontinued, Confirm continued adhesion of scopolamine 1.5 mg/72hr patch at documented site. Problems Active Problems Problem ClassificationProblemDateDocumented DateEpisodic/ChronicCardiac dysrhythmias (20 sources)Irregular heart beat; Translations: [Cardiac arrhythmia, unspecified]Onset: 951042-60-9738SngluowIljywfplk of lipid metabolism (20 sources)Hypertriglyceridemia; Translations: [Pure hyperglyceridemia]Onset: 819977-40-8987MhaaansDfrvyhrxyzhlj and screening for infectious disease (3 sources)Encounter for screening for human papillomavirus (HPV); Translations: [Patient encounter status]Onset: 589551-83-7045NrifbchlBwguabpam disorders (20 sources)Irregular periods; Translations: [Irregular menstruation, unspecified]Onset: 205683-98-5596BvygthvGdrmaxrwbvv deficiencies (20 sources)Vitamin D deficiency; Translations: [Vitamin D deficiency, unspecified]Onset: 801177-95-9613JcrrwvdKliwx and unspecified benign neoplasm (2 sources)Melanocytic nevus of trunk; Translations: [Melanocytic nevi of trunk] 85-33-8960LmtlheyeVwlup and unspecified benign neoplasm (2 sources)Multiple benign melanocytic nevi ; Translations: [Melanocytic nevi of right upper limb, including shoulder]59-25-9941JjqhoalcVfuky and unspecified benign neoplasm (2 sources)Melanocytic nevi of unspecified part of face; Translations: [Benign neoplasm of skin of other and unspecified parts of face]14-49-4351MfhfccwgXgcka ear and sense organ disorders (20 sources)Otitis externa of left ear; Translations: [Unspecified otitis externa, left ear]Onset: 742283-91-8183MdbussyDassr nutritional; endocrine; and metabolic disorders (20 sources)Morbid obesity; Translations: [Morbid (severe) obesity due to excess calories]Onset: 132970-41-0170MkhnmepEovts nutritional; endocrine; and metabolic disorders (20 sources)Intolerance to lactose; Translations: [Lactose intolerance, unspecified]Onset: 784106-09-2510IyfafjgZaqnb nutritional; endocrine; and metabolic disorders (4 sources)Body mass index 40+ - severely obese; Translations: [Morbid (severe) obesity due to excess calories]Onset: 924564-63-6141NuonsopTquor nutritional; endocrine; and metabolic disorders (2 sources)Morbid (severe) obesity due to excess calories; Translations: [Morbid (severe) obesity due to excess calories]Onset: 61-32-4057VxtjlhmGmpjw screening for suspected conditions (not mental disorders or infectious disease) (6 sources)Encounter for screening for malignant neoplasm of cervix; Translations: [Patient encounter status]Onset: 05-76-1645UsqzkqszPetby skin disorders (2 sources)Lentiginosis; Translations: [Other melanin hyperpigmentation] 24-76-3319EgbhelbyGfuwehwk codes; unclassified (2 sources)History of atypical nevus; Translations: [Personal history of other specified conditions]69-37-1204PrqnihohIarjvbhforh; intervertebral disc disorders; other back problems (4 sources)Disorder of lumbar disc; Translations: [Bulge of lumbar disc without myelopathy]45-21-7784FywpntgPlunglbdjbj; intervertebral disc disorders; other back problems (17 sources)Acute back pain with sciatica; Translations: [Lumbago with sciatica, right side]Onset: 489742-56-0221FszaxsqiUkowuiw disorders (20 sources)Hypothyroidism; Translations: [Hypothyroidism, unspecified]Onset: 190586-96-2098Sfvromx Past or Other Problems Problem ClassificationProblemDateDocumented DateEpisodic/ChronicAbdominal pain (20 sources)Pelvic and perineal pain; Translations: [Pelvic and perineal pain] Onset: 871494-34-1453HylljlggYqvakjc cyst (20 sources)Cyst of ovary; Translations: [Unspecified ovarian cyst, unspecified side]Onset: 995189-84-4632Shsrvpes Results Test NameValueInterpretationReference RangeFacilityABORH TYPE RECONFIRMATIONon 44-03-4229EBA/RH(D) TYPEPositiveOSU [facility] GeneralOS[facility] GeneralABO/RH(D) TYPEPositiveNormalOhiOhioHealth Doctors Hospital Comment on above:Performed By: #### TYPEC #### [facility] (DEFAULT) [address] [place], [place] [address]MULJ HCG, QUAL, BLOODon 80-19-3660LVK (Qual) SerumNegative NormalNegativeSheltering Arms HospitalComment on above: Performed By: #### BHCG #### [facility] (DEFAULT) [address] [place] [address] 13378EYRBIYN RHYTHMon 71-83-3573KIJSumma HealthHCG ( test) QlOrdered By: Kenna Waters on 94-17-4451Tqng HCG ( test) QlNegativeNegativeSumma HealthInterpretation and review of laboratory resultsNormMount Zion campusBASIC METABOLIC PANELon 15-33-1510Lskfc gap [Moles/Vol]12 mmol/LNormal7-17[facility] HospitalComment on above:Performed By: #### C7C #### [facility] (DEFAULT) [address] [place], [place] [address]Kdzawkd [Mass/Vol]9.1 mg/dLNormal8.6-10.5S[facility] HospitalComment on above:Performed By: #### C7C #### [facility] (DEFAULT) [address] [place], [place] [address]Twjfsazt [Moles/Vol]102 mmol/YRoausk52-986BjkbSheltering Arms HospitalComment on above:Performed By: #### C7C #### [facility] (DEFAULT) [address] [place] [address] 60046DG0 [Moles/Vol]28 mmol/OKvnhaa37-42IrmdSheltering Arms HospitalComment on above:Performed By: #### C7C #### [facility] (DEFAULT) [address] [place] [address] 87531Dtfdcvflmf [Mass/Vol]0.58 mg/dLNormal0.50-1.20S[facility] HospitalComment on above:Performed By: #### C7C #### [facility] (DEFAULT) [address] [place] [address] 90700fXEU, CKD-EPI, Female>Normal>=60Shel[facility] Arms HospitalComment on above:Result Comment: Reported eGFR is based on the CKD-EPI 2020 equation using creatinine, age, and sex.Performed By: #### C7C #### [facility] (DEFAULT) [address] [place] [address] 16828Ygrsvzp [Mass/Vol]56 mg/dLLowNonfastin-179 mg/dL; Fastin-99S[facility] HospitalComment on above: Performed By: #### C7C #### [facility] (DEFAULT) [address] [place] [address] 36435Srlricrjeh [Osmolality]287 mosm/ucTvhwfr362-295OgghSheltering Arms HospitalComment on above:Performed By: #### C7C #### [facility] (DEFAULT) [address] [place] [address] 51113Wfnpyyqcv [Moles/Vol]4.1 mmol/LNormal3.5-5.0S[facility] HospitalComment on above:Performed By: #### C7C #### [facility] (DEFAULT) [address] [place] [address] 35638Qckqcz [Moles/Vol]138 mmol/RItjurm339-159AdwxSheltering Arms HospitalComment on above:Performed By: #### C7C #### [facility] (DEFAULT) [address] [place], [place] [address]Esml nitrogen [Mass/Vol]13 mg/dLNormal7-25S[facility] HospitalComment on above:Performed By: #### C7C #### [facility] (DEFAULT) [address] [place], [place] [address]Mayx nitrogen/Creatinine [Mass ratio]22 mg/mgNormalOhio Ohiohealth Arthur [facility] Bing[facility] Md, Cancer CenterComment on above:Performed By: #### C7C #### [facility] (DEFAULT) [address] [place] [address] 25651BBU,PLATELETSon 37-17-7667Fmyrstvdqh (Bld) [Volume fraction] 40.0 %Jnxbsu89.9-44.3S[facility] HospitalComment on above:Performed By: #### HEMOGC #### [facility] (DEFAULT) [address] [place] [address] 20750Humigvwfvc (Bld) [Mass/Vol]13.3 g/rFJxsbnn01.4-15.2S[facility] HospitalComment on above:Performed By: #### HEMOGC #### [facility] (DEFAULT) [address] [place] [address] 99081QWC (RBC) [Entitic vol]88.7 iNDtvxku43.6-97.7S[facility] HospitalComment on above:Performed By: #### HEMOGC #### [facility] (DEFAULT) [address] [place] [address] 70471Mbmx Cell Hgb29.5 jgPmaonn95.9-33.9S[facility] HospitalComment on above:Performed By: #### HEMOGC #### [facility] (DEFAULT) [address] [place] [address] 47226Yrzy Cell Hgb Conc33.3 g/uXTrxlok59.4-35.9S[facility] HospitalComment on above:Performed By: #### HEMOGC #### [facility] (DEFAULT) [address] [place] [address] 54918Afvsqesc mean volume (Bld) [Entitic vol]9.4 fLNormal8.5-12.2 [facility] HospitalComment on above:Performed By: #### HEMOGC #### [facility] (DEFAULT) [address] [place] [address] 32294Phyvbprki (Bld) [#/Vol]376 10*3/yFWuwsbw651-182SbaySheltering Arms HospitalComment on above:Performed By: #### HEMOGC #### [facility] (DEFAULT) [address] [place] [address] 07815HSP (Bld) [#/Vol]4.51 10*6/uLNormal3.91-5.04[facility] HospitalComment on above:Performed By: #### HEMOGC #### [facility] (DEFAULT) [address] [place] [address] 22948PLJ Loiwrslctdbu90.4 %Uvisgb61.8-14.9[facility] HospitalComment on above:Performed By: #### HEMOGC #### [facility] (DEFAULT) [address] [place] [address] 31023NHC (Bld) [#/Vol]13.42 10*3/uLHigh3.99-11.19[facility] HospitalComment on above:Performed By: #### HEMOGC #### [facility] (DEFAULT) [address] [place] [address] 06043EL,INR,PTTon 71-53-0008fEOO Coag (Bld) [Time]29.3 sNormal 24.0-34.3[facility] HospitalComment on above:Performed By: #### PTPTT #### [facility] (DEFAULT) [address] [place] [address] 765[address]WYY Coag (PPP) [Relative time]1.1 {INR}Normal0.9-1.1[facility] HospitalComment on above:Performed By: #### PTPTT #### [facility] (DEFAULT) [address] [address]CV Coag (PPP) [Time]14.2 eXaxrpu60.9-14.2S[facility] HospitalComment on above:Performed By: #### PTPTT #### [facility] (DEFAULT) [address] [address]ATERBY: MRSA/MSSAon 84-20-2915Eqyhghodatc Resistant S. Aureus By PcrNegativeNormalNegativeSheltering Arms HospitalComment on above:Order Comment: This test was performed using a real time PCR assay. Results should be interpreted in conjunction with other clinical and laboratory findings. A positive result does not necessarily indicate the presence of viable organism. This test should not be used as a test of cure. For E-swab specimens, this test was developed and its performance characteristics determined by the Clinical Microbiology Laboratory at [facility]. It has not been cleared or approved by the FDA.The laboratory is regulated under CLIA as qualified to perform high-complexity testing. This test is used for clinical purposes. It should not be regarded as investigational or forresearch.Performed By: #### SCRSB #### [facility] (DEFAULT) [address] [address]Tiaenfvczyasdq Aureus By PcrNegativeNormalNegativeSheltering Arms HospitalComment on above:Order Comment: This test was performed using a real time PCR assay. Results should be interpreted in conjunction with other clinical and laboratory findings. A positive result does not necessarily indicate the presence of viable organism. This test should not be used as a test of cure. For E-swab specimens, this test was developed and its performance characteristics determined by the Clinical Microbiology Laboratory at [facility]. It has not been cleared or a pproved by the FDA.The laboratory is regulated under CLIA as qualified to perform high-complexity testing. This test is used for clinical purposes. It should not be regarded as investigational or forresearch.Performed By: #### SCRSB #### [facility] (DEFAULT) [address] [place] [address]BMDA AND SCREEN - PREADMISSIONon 16-07-7620GZI/RH(D) TYPE PositiveTwin City HospitalComment on above: Performed By: #### XMPO, [id number] #### [facility] (DEFAULT) [address] [place], [place] [address]Sdvrwgjd Kpbmhwsljc42/24/2025 23:59[facility] City HospitalComment on above:Performed By: #### XMPO, [id number] #### [facility] (DEFAULT) [address] [place] [address] [id number] CHEST PA AND LATERAL 2 VIEWSon [id number] CHEST PA AND LATERAL 2 VIEWSEXAM: XR CHEST PA AND LATERAL 2 VIEWS, 12/10/2024 13:13 PM COMPARISON: None CLINICAL INDICATIONS: Pre op RELEVANT CLINICAL HISTORY: M54.16:Lumbar radiculopathy FINDINGS: (Adequate technique) Implanted Devices: None Lungs: Clear, without mass, interstitial disease, or consolidation. Pleural Spaces: No pleural effusion. No pneumothorax. Mediastinum and Terri: Normal Cardiac silhouette and great vessels: Normal heart size. Unremarkable aorta. Chest Wall: Normal IMPRESSION: No acute cardiopulmonary disease [facility] Lateral[facility] 12-10-2024 IMPRESSION: No acute cardiopulmonary disease RADIOLOGY EXAM: XR CHEST PA AND LATERAL 2 VIEWS, 12/10/2024 13:13 PM COMPARISON: None CLINICAL INDICATIONS: Pre op RELEVANT CLINICAL HISTORY: M54.16:Lumbar radiculopathy FINDINGS: (Adequate technique) Implanted Devices: None Lungs: Clear, without mass, interstitial disease, or consolidation. Pleural Spaces: No pleural effusion. No pneumothorax. Mediastinum and Terri: Normal Cardiac silhouette and great vessels: Normal heart size. Unremarkable aorta. Chest Wall: Normal RADIOLOGYDavis, Tye Adan MD - 12/10/2024 EXAM: XR CHEST PA AND LATERAL 2 VIEWS, 12/10/2024 13:13 PM COMPARISON: None CLINICAL INDICATIONS: Pre op RELEVANT CLINICAL HISTORY: M54.16:Lumbar radiculopathy FINDINGS: (Adequate technique) Implanted Devices: None Lungs: Clear, without mass, interstitial disease, or consolidation. Pleural Spaces: No pleural effusion. No pneumothorax. Mediastinum and Terri: Normal Cardiac silhouette and great vessels: Normal heart size. Unremarkable aorta. Chest Wall: Normal IMPRESSION IMPRESSION: No acute cardiopulmonary disease [facility] HealthRadiology Study observation (narrative)[facility] HealthXR Chest PA and LateralOrdered By: Tye Flowers on 12-10-2024 [facility] Work Phone: MR LUMBAR SPINE WO CONTRASTon 23-50-4783UQ LUMBAR SPINE WO CONTRASTEXAMINATION/TECHNIQUE: MR LUMBAR SPINE WO CONTRAST HISTORY: Low back pain. Right radiculopathy. No recent injury. Denies prior lumbar surgery. COMPARISON: Radiographs 11/05/2024. RESULT: Counting reference: Lumbosacral junction. For the purposes of this report, L5-S1 is considered the last well-formed disc space. 5 lumbar type vertebral bodies. Alignment: Alignment is anatomic. Bone marrow signal: No evidence for acute or chronic fracture. No destructive osseous lesions. Conus: The conus is within normal limits of signal intensity and morphology. Paraspinal soft tissues: Subcutaneous edema posteriorly, otherwise grossly unremarkable. Lower thoracic spine: Visualized lower thoracic canal and foramina without significant narrowing. T12-L1: No significant canal or foraminal narrowing. L1-L2: No significant canal or foraminal narrowing. L2-L3: No significant canal or foraminal narrowing. L3-L4: No significant canal or foraminal narrowing. L4-L5: No significant canal or foraminal narrowing. L5-S1: Disc height loss. Disc desiccation. Disc protrusion in the right subarticular zone measuringaround 1.2 x 0.5 x 1.0 cm, with associated abutment of the descending right S1 nerve root. Additional possible tiny central to left subarticular zone disc protrusion with possible abutment of the descending left S1 nerve root. Subarticular narrowing. No significant canal narrowing. No significant foraminal narrowing. Sacrum and iliac wings: The visualized sacrum and iliac wings are unremarkable. IMPRESSION: Degenerative changes L5-S1 as discussed. ELECTRONICALLY SIGNED BY: Efrem DuongXR LUMBAR SPINE 4+ VIEWS WITH FLEXION EXTENSIONon 71-58-0503YP LUMBAR SPINE 4+ VIEWS WITH FLEXION EXTENSIONEXAMINATION/TECHNIQUE: XR LUMBAR SPINE 4+ VIEWS WITH FLEXION EXTENSION HISTORY: Low back pain. Right radiculopathy. COMPARISON: None RESULT: Counting Reference: L5-S1 is the last well-formed disc space. Alignment essentially anatomic. No significant change in alignment from flexion to extension. No evidence for acute fracture. Vertebral body heights maintained. Disc spaces appear maintained. No significant facet degenerative changes. Visualized sacrum grossly intact. SI joints grossly intact. Visualized hips grossly unremarkable. Soft tissues unremarkable. IMPRESSION: No acute osseous findings. ELECTRONICALLY SIGNED BY: Efrem Duong AvailableIGP,APTIMA HPV,AGE GDLNon 61-14-0654DNH GDLN ACOG TESTINGNote.NOMS HealthcareComment on above:TESTS RESULT FLAG UNITS REF RANGE LAB Clinician Provided Cytology Information Source.............Cervix;Endocervix No. of containers..01 ThinPrep Vial Age Algo EDITH Zhane... FLAG LEGEND: L-Low Normal,H-High Normal,LL-Alert Low,HH-Alert High <-Panic Low,>-Panic High,A-Abnormal,AA-Critical Abnormal Performed at: 01 =G [facility] [address] [place] [address] Aurora Gallardo MD, IGP, RFX APTIMA HPV ASCUNote.NOMS HealthcareComment on above:TESTS RESULT FLAG UNITS REF RANGE LAB DIAGNOSIS: 02 NEGATIVE FOR INTRAEPITHELIAL LESION OR MALIGNANCY. Specimen adequacy: 02 Satisfactory for evaluation. No endocervical component is identified. Performed by: Heu Esquivel, Upper Tier ([facility]) . 02 Note: Note 02 The Pap smear is a screening test designed to aid in the detection of premalignant and malignant conditions of the uterine cervix. It is not a diagnostic procedure and should not be used as the sole means of detecting cervical cancer. Both false-positive and false-negative reports do occur. Test Methodology: Note 02 This liquid based ThinPrep(R) pap test was screened with the use of an image guided system. . 02 The HPV DNA reflex criteria were not met with this specimen result therefore, no HPV testing was performed. FLAG LEGEND: L-Low Normal,H-High Normal,LL-Alert Low,HH-Alert High <-Panic Low,>-Panic High,A-Abnormal,AA-Critical Abnormal Performed at: 02 WB [facility] [address] [place] [address] Aurora Gallardo MD, Performed at: =G - [facility] [address] [id number] Human Resources Assistant Manager: Aurora Gallardo MD, Phone: [phone] Performed at: - [facility] [address] [id number] Human Resources Assistant Manager: Aurora Gallardo MD, Phone: [phone] BRUSH-SPATULA CERVIX ENDOCERVIX [facility] HospitalOG PANEL 2: 21 to 29on 06-17-2021..NormalAdena Regional Medical CenterComment on above:Performed By: #### [id number] #### [facility] [address] [place] [address] Dr. Jamil Tracy [facility] HospitalOG Ccbordo48-35GyuacrRmxSumma HealthComment on above:Performed By: #### [id number] #### [facility] [address] [place] [address] Dr. Jamil CaldwellDIAGNOSIS:CommentCleveland Clinic [facility]ron General [facility] on above: Result Comment: NEGATIVE FOR INTRAEPITHELIAL LESION OR MALIGNANCY.Performed By: #### [id number] #### [facility] [address] [place] [address] Dr. Jamil CaldwellMethodology:CommentCleveland Clinic [facility]ron General [facility] on above: Result Comment: This liquid based ThinPrep(R) pap test was screened with the use of an image guided system.Performed By: #### [id number] #### [facility] [address] [place] [address] Dr. Jamil CaldwellNote:CommentCleveland Clinic [facility]ron General [facility] on above:Result Comment: The Pap smear is a screening test designed to aid in the detection of premalignant and malignant conditions of the uterine cervix. It is not a diagnostic procedure and should not be used as the sole means of detecting cervical cancer. Both false-positive and false-negative reports do occur. .Performed By: #### [id number] #### [facility] [address] [place] [address] Dr. Jamil CaldwellPerformed by:CommentCleveland Clinic Akron General [facility] on above: Result Comment: Katty Xiao, Upper Tier (ASCP)Performed By: #### [id number] #### [facility] [address] [place] [address] Dr. Jamil CaldwellReflex Criteria:CommentCleveland Clinic [facility]ron General [facility] on above:Result Comment: The HPV DNA reflex criteria were not met with this specimen result therefore, no HPV testing was performed. .Performed By: #### [id number] #### [facility] [address] [place] [address] Dr. Jamil CaldwellSpecimen adequacy:CommentCleveland Clinic [facility]ron General [facility] on above:Result Comment: Satisfactory for evaluation. Endocervical and/or squamous metaplastic cells (endocervical component) are present.Performed By: #### [id number] #### [facility] [address] [place] [address] Dr. Jamil Linton 77-63-4102Rztmp [id number]#1.00CD:127[facility] HospitalPhysician Referralon 19-11-3206Ammusjfal Referral [id number]:127[facility]zer HospitalAmbulatory Visit Summaryon 26-02-7802Jqwxxdhjjx Visit Summary CHELLE HOUSE :1995 Visit Date:05/06/2021 Ambulatory Visit Instructions Your Diagnosis Recurrent UTI Tests Performed Urnls Dip Stick Auto w/o Microscopy POC 36319 Your Care Team Attending Physician - VAISHALI WILSON PA-C Primary Care Physician - Rodrigue PROCTOR DO Referring Physician - Rodrigue PROCTOR DO This Is Your Medications List [...] VAISHALI WILSON PA-C, URL When: Where: [address] [facility] [place] [address] Referron (1) Medications What How Much When Instructions [...] Urnls Dip Stick Auto w/o Microscopy POC 92784 (05/06/2021) Bilirubin Urine Dipstick - Negative Blood Urine Dipstick - Negative Glucose Urine Dipstick - Negative Ketones Urine Dipstick - Negative Leukocytes Urine Dipstick - Negative Nitrite Urine Dipstick - Negative Protein Urine Dipstick - Negative Specific [place] Urine Dipstick - 1.010 Urine Appearance Urine [...] part of the urinary tract. The urinary tractincludes the kidneys, ureters, bladder, and urethra. These organs make, store, and get rid of urinein the body. Your health care provider may [...] be done to deter (more content not included)...[facility] Educationon 25-90-1662Kieurqe EducationObstetrics and Gynecology Urinary Tract Infection, Adult A urinary tract infection (UTI) is an infection of any part of the urinary tract. The urinary tractincludes the kidneys, ureters, bladder, and urethra. These organs make, store, and get rid of urinein the body. Your health care provider may [...] this condition includes: ? Antibiotic medicine. ? Mnoy-evk-tokjqim medicines to treat discomfort. ? Drinking enough water to stay hydrated. If you have frequent infections or have other conditions such as a kidney stone, you may need to see a health care provider who specializes in the urinary tract (urologist). In rare cases, urinary tract infections can cause sepsis. Sepsis is a life- threatening condition that occurs when the body responds to an infection. Sepsis is treated in the hospital with IV antibiotics, fluids, and other medicines. Follow these instructions at home: Medicines ? Take jztu-lmc-rgvyyyj and prescription medicines only as told by [...] in your genital area, around the entrance toyour urinary tract (urethra). ? Treatment for this condition often includes antibiotic medicines. ? If you were prescribed an antibiotic medicine, take it as told by your health care provider. Do not stop using the antibiotic even if you start to feel better. ? Keep all follow-up visits as told by your health care provider. This is important. This in (more content not included)...[facility] HospitalUrology Office/Clinic Noteon 02-70-5508Yelbbzv Office/Clinic NoteChief Complaint New Patient Recurrent UTI HPI Staff [...] Current UA shows no microhematuria and no sign s of infection. PVR is low today. Today we discussed the following methods to decrease frequency of UTIs: 1) increase fluids 2) I discussed that there is evidence that herbal supplements may help - cranberry, probiotics, andd-mannose. 3) proper hygiene habits (wipe front to back every time, avoid baths & hot tubs, avoid any scented PRESS MAINTAINER products, urinate after sexual activity, etc) advised [...] and blood.* Follow-up With When Contact Information KATIE TORIBIO, VAISHALI Deluna, URL [address] [place] [address] Business (1) Additional Instructions: Patient [...] History None. Medications desogestrel-e (more content not included)...[facility] Comment on above:Result Comment: Electronically Signed By: VAISHALI WILSON PA-C\.br\Date and Time Signed: 05/06/2214:39 EST\.br\Electronically Co-Signed By: Luz Marina Soriano\.br\Date and Time Co-Signed: 05/06/21 15:17 EST Vital Signs Date TimeVital SignValuePerforming JmewsxazvGqhefbuw81-14-8916 11:40-0400Body yiichltwwvm96.5 [degF]Maria D Finn MD Work Phone: [phone] [place], [place] 2968610-21-2025 11:40-0400 Diastolic blood dfcyfgds59 mm[Hg]Maria D Finn MD Work Phone: 1(606)[address] [place], [place] 2968610-21-2025 11:40-0400Heart rate82 /Glo Finn MD Work Phone: 1(174)[address] [place], [place] 2968610-21-2025 11:40-0400 Respiratory rate18 /Glo Finn MD Work Phone: 1(762)[address] [place], [place] 2968610-21-2025 11:40-8706XhB7% (BldA) [Mass fraction]95 %Maria D Finn MD Work Phone: 1(444)[address] [place], [place] 2968610-21-2025 11:40-0400Systolic blood mzubcxqs146 mm[Hg]Maria D Finn MD Work Phone: 1(576)[address] [place], [place] 2968610-21-2025 05:42-0400Body .2 Travis Finn MD Work Phone: [phone])[address] [place], [place] 2968610-21-2025 05:42-0400Body mass index (BMI) [Ratio]45.26 kg/p9RaceulpdsMaria D Finn MD Work Phone: 1(173)[address] [place], [place] 2968610-21-2025 05:42-0400Body uruhtg315.09 kgMaria D Finn MD Work Phone: 1(490)[address] [place], [place] 2968610-06-2025 11:03-0400 Diastolic blood pbtjoasl03 mm[Hg]Maria D Finn MD Work Phone: 1(060)[address] [place], [place] 2968610-06-2025 11:03-0400Systolic blood omcmlblv873 mm[Hg]Maria D Finn MD Work Phone: 1(267)[address] [place], [place] 2968610-06-2025 10:190400Body tyzail518.2 Travis Finn MD Work Phone: [phone])[address] [place], [place] 2968610-06-2025 10:0400Body mass index (BMI) [Ratio]45.4 kg/d3CfswouevbMaria D Finn MD Work Phone: 1(300)[address] [place], [place] 2968610-06-2025 10:190400Body zggqwteifuj83.6 [degF]Maria D Finn MD Work Phone: 1(679)[address] [place], [place] 2968610-06-2025 10:190400Body glyxpi488.5 Perri Finn MD Work Phone: 1(050)[address] [place], [place] 2968610-06-2025 10:040Heart onqw056 /Glo Finn MD Work Phone: 1(399)[address] [place], [place] 2968610-06-2025 10:19-5352PsF9% (BldA) [Mass fraction]96 %Maria D Finn MD Work Phone: [facility]09-08-2025 12:24-0400Body mass index (BMI) [Ratio]44.6 kg/m5EsntmChelle Santiago WAREHOUSE FOREMAN Work Phone: [phone]09-08-2025 12:24-0400Body .09 kgChelle Santiago WAREHOUSE FOREMAN Work Phone: [phone] [address]-08-2025 12:24-0400Diastolic blood vvtnxsug39 mm[Hg]Chelle Santiago WAREHOUSE [employer]EMAN Work Phone: 1([phone] [place] [address]-08-2025 12:24-0400Heart rate84 /min Chelle Santiago [employer]AREHOUSE [employer]EMAN Work Phone: 1(375)[address] [place], [place] 6674609-08-2025 12:24-5481PwO2% (BldA) [Mass fraction]97 %Chelle Santiago WAREHOUSE FOREMAN Work Phone: 1(635)[address] [place], [place] 6674609-08-2025 12:24-0400Systolic blood rziikqbs835 mm[Hg]Chelle Santiago WAREHOUSE FOREMAN Work Phone: 1(425)[address] [place], [place] 6674611-22-2024 08:02-0500Body .5 cmSrosa Santiago WAREHOUSE FOREMAN Work Phone: 1([phone] [place], [place] 6674611-22-2024 08:02-0500Body mass index (BMI) [Ratio]42.53 kg/t8VgxhkChelle Santiago WAREHOUSE FOREMAN Work Phone: 1(213)[address] [place], [place] 6674611-22-2024 08:02-0500Body bwfpaq632.01 kgChelle Santiago WAREHOUSE FOREMAN Work Phone: 1([phone] [place] [address]-22-2024 08:02-0500Diastolic blood mxynggrk84 mm[Hg]Chelle Santiago WAREHOUSE FOREMAN Work Phone: 1(699)[address] [place] [address]-22-2024 08:02-0500Heart rate92 /min Chelle Helmallisonhenok WAREHOUSE FOREMAN Work Phone: 1([phone] [place], [place] [address]24 08:02-7091BtG5% (BldA) [Mass fraction]99 %Chelle Jack WAREHOUSE FOREMAN Work Phone: noSaint [facility]'s Saint Francis HospitalMofdfjtqrj59-95-9002 08:02-0500Systolic blood ufxsofle248 mm[Hg]Chelle Helmjoseph WAREHOUSE FOREMAN Work Phone: [facility] Encounters Encounter DateEncounter TypeCare ProviderFacilityStart: 12-18-2024 End: 69-31-3575enqzfphwdgVELFUNMUP VILJOENFacility:[facility]ITALtart: 12-18-2024 End: 81-89-8560Lwvvzfuxba hospital visit by Allison Drew MD Work Phone: [facility] PERIOPComment on above:Neurogenic claudication Start: 12-10-2024 End: 47-06-5203Yacofkawrb hospital visit by Allison Drew MD Work Phone: [facility] EastComment on above:Arrived Start: 31-61-2064fkfpuimrowSYXSOOYGD VILJOENFacility:[facility]ITALtart: 56-56-5514nesfxaycxzDGECF KAMPFERFacility:[facility]ITALtart: 12-06-2024 Encounter for other preprocedural examinationSROSA SANTIAGOFacility:[facility]OS[facility]ITALtart: 12-03-2024 End: 69-55-9447Wafjtz outpatient new 45 minutesMaria D Drew MD Work Phone: [facility] [place] Comment on above:Lumbar radiculopathy (Primary Dx)Start: 12-03-2024 End: 50-04-5966Hvaeqe Joel Santiago WAREHOUSE FOREMAN Work Phone: noNorthBay Medical CenterComment on above:Acute bilateral low back pain with right-sided sciatica (Primary Dx)Start: 11-29-2024 End: 31-35-8581Ijesfdyic encounterVaishali Reyes MD Work Phone: noKaiser Fresno Medical Centertart: 11-23-2024 End: 79-18-8449Bimdwy Joel Santiago WAREHOUSE FOREMAN Work Phone: [facility] ERComment on above:Acute bilateral low back pain with right-sided sciatica (Primary Dx); Lumbar disc herniationStart: 11-21-2024 End: 03-67-3984Knmvks flowsheetMelissa Kelbley PTANOMS [facility] Start: 11-21-2024 End: 09-26-8646Pqscsq flowsheetMelissa Kelbley [facility] Start: 11-21-2024 End: 86-11-4303pklllqmxxqZERWU KAMPFERNot AvailableStart: 11-21-2024 End: 80-60-7046gfjiornxjqZyrnsnu Kelblemarsha PTANOMS [facility] Physical TherapyComment on above:Acute bilateral low back pain with right-sided sciatica (Primary Dx) Bulge of lumbar disc without myelopathy (Primary Dx)Start: 11-15-2024 End: 84-32-4168Ehzllm flowsheetMarshall Brink PTANOMS [facility] Start: 11-15-2024 End: 85-12-1980Zmbuzw flowsheetMarshall Brink PTANOMS [facility] Start: 11-15-2024 End: 23-50-0647wikekawiupHvjipvnp Brink PTANOMS [facility] Physical TherapyComment on above:Acute bilateral low back pain with right-sided sciatica (Primary Dx) Start: 11-14-2024 End: 82-05-3408PjepoyNorah Santiago WAREHOUSE FOREMAN Work Phone: [facility] ERComment on above:Acute bilateral low back pain with right-sided sciatica (Primary Dx)Start: 11-12-2024 End: 42-25-3824nkitdbuadwZrojppsw Brink PTANOMS [facility] Physical TherapyComment on above:Acute bilateral low back pain with right-sided sciatica (Primary Dx) Start: 11-09-2024 End: 21-05-2449Ntwwep flowsheetSammantha Kim PTNOMS [facility] Start: 11-09-2024 End: 36-88-9175Idgxel flowsheetSammantha Kim PTNOMS [facility] Start: 11-09-2024 End: 20-04-2550hllffrjplgHugwzwymg Kim PTNOMS [facility] Comment on above:Acute bilateral low back pain with right-sided sciatica (Primary Dx)Start: 11-07-2024 End: 98-73-8371Aapela flowsheetSammantha Kim PTNOMS [facility] Start: 11-07-2024 End: 31-34-5938Umesiz flowsheetSammantha Kim PTNOM[facility] Start: 11-07-2024 End: 40-92-1713rbpiflshdxJxijniuqd Kim PTNOMS [facility] Comment on above:Acute bilateral low back pain with right-sided sciaticaStart: 11-05-2024 End: 04-46-8241Ruglnpramy Santiago NP Work Phone: [facility]Mem[facility] MedicineStart: 11-05-2024 End: 00-62-1448Oevbsj Samantha Santiago WAREHOUSE FOREMAN Work Phone: noMemorial Hospital MedicineStart: 11-05-2024 End: 83-31-9882Eedrnd outpatient visit 25 minutesSarao Santiago NP Work Phone: noMemorial Hospital MedicineComment on above:Acute bilateral low back pain with right-sided sciatica (Primary Dx)Start: 11-05-2024 End: 84-73-1980moyvocxyioTQMQR KAMPFERNot AvailableStart: 09-06-2024 End: 19-84-4782Loxiis outpatient visit 15 minutesRell Cramer MD Work Phone: [facility] SWS DERMComment on above:Melanocytic nevus of trunk (Primary Dx); Lentigines; History of atypical nevus; Multiple benign melanocytic nevi of both upper extremities, both lower extremities, and trunk; Melanocytic nevi of faceStart: 09-06-2024 End: 74-34-0434lbyfnacevbTZUUCJuan Carlos Nagel AvailableStart: 09-06-2024 End: 25-84-5592Ijkroexu Cramer MD Work Phone: noms SWS DERMStart: 09-06-2024 End: 84-34-0978Ycpohf Dior Cramer MD Work Phone: noms SWS DERMStart: 06-13-2024 End: 08-69-7713WoylxjYmfnq Kampfer WAREHOUSE FOREMAN Work Phone: NOVI FNR FMComment on above:Morbid obesity (CMS/HCC) Start: 04-13-2024 End: 84-56-4687TbelotHujza Kampfer WAREHOUSE FOREMAN Work Phone: NOMX FNR FMComment on above:Morbid obesity (CMS/HCC) Start: 01-20-2024 End: 86-80-4605Krmbiq Samantha Santiago WAREHOUSE FOREMAN Work Phone: NONJ FNR FMStart: 01-20-2024 End: 39-90-8839Wdncpi Samantha Santiago WAREHOUSE FOREMAN Work Phone: NOLG FNR FMStart: 01-20-2024 End: 60-91-5144Kjtetmt encounter statusSarao Santiago WAREHOUSE FOREMAN Work Phone: [facility] Work Phone: Start: 01-20-2024 End: 64-76-1730Yfbvkcag preventive med est patient 18-39 yrsChelle Santiago WAREHOUSE FOREMAN Work Phone: NOOJ FNR FMComment on above:Encounter for wellness examination (Primary Dx); Encounter for immunization; Acquired hypothyroidism (CMS/HCC); Morbid obesity (CMS/HCC); Hypertriglyceridemia (CMS/HCC); Screening, lipidStart: 01-20-2024 End: 54-97-7077jgkhcftcvwPWCDJ KAMPFERNot AvailableStart: 12-27-2023 End: 08-30-2124Gufalb OnlyChelle Santiago WAREHOUSE FOREMAN Work Phone: NOGE FNR FMComment on above:Morbid obesity (CMS/HCC) Start: 12-26-2023 End: 70-39-6455CqbbwnEgygshdy Hohman MD Work Phone: NOCK FNR FMComment on above:Morbid obesity (CMS/HCC) Start: 12-25-2023 End: 51-36-6610MpfizvMozzl Kampfer WAREHOUSE FOREMAN Work Phone: NOOC FNR FMComment on above:Morbid obesity (CMS/HCC) Start: 10-31-2023 End: 69-37-2162KtthzyLvtnb Kampfer WAREHOUSE FOREMAN Work Phone: NOWU FNR FMComment on above:Morbid obesity (CMS/HCC) Start: 10-17-2023 End: 82-50-8684Xxaodrggr Result EncounterCorey Esthela DO Work Phone: [facility] External Department UnsolicitedStart: 10-17-2023 End: 76-08-8814Jzjfjvznv Result EncounterCorey Esthela DO Work Phone: [facility] External Department UnsolicitedStart: 06-10-2021 End: 82-50-9023nfvtfvycjxGW RODRIGUE FAZIOFacility:H1 Procedures DateProcedureProcedure DetailPerforming ClinicianStart: 60-30-8372CDRCUZF RHYTHM Other Other OTStart: 64-29-1423Vhuxqbfchvzh chorionic qualitativeStepmoses Drew MD Work Phone: Start: 61-94-6636GHOBX TYPE RECONFIRMATIONIrmeen Q Wong MBJALEN Work Phone: Start: 07-05-4377Vqlpepiywv exam chest 2 views Maria D Drew MD Work Phone: Start: 43-99-2932Ejhgmzds Lele SANTIAGOComment on above:Result Comment: @12/10/24 19:08 by FT04:Performed By: #### XMPO, [id number] #### [facility] ([facility]) [address] [place] [address]Mekez: 64-89-8521ZZW,APTIMA HPV,AGE GDLNCorey Esthela DO Work Phone: Plan of Treatment DateCare ActivityDetailAuthorStart: 09-05-2025 End: 23-70-8106Xtkuhyx encounter procedureNOMS SWS DERMStart: 02-01-2025 End: 74-38-1213Fspgqbc encounter tdtuudgxj58/05/2025 1:30 PM EST Office Visit [facility] [address] [place] [address] Rudy Wooten, EMILE-DANIELLE [address] [place] [address] [address] [place] [address] [facility] AustinStart: 12-18-2024 End: 81-72-2211Anhpjzaya to same day surgery kvrfhf8612/18/2024 1:37 PM EDT - 12/18/2024 4:02 PM [facility] [address] [place] [address] Maria D Ansari MD [address] [place] [address] LAMINECTOMY VERTEBRAL SEGMENT LUMBARUH PERIOPComment on above:LAMINECTOMY VERTEBRAL SEGMENT LUMBARStart: 12-18-2024 End: 18-70-0107Tgi facetectomy & foramotomy 1 segment lumbarLAMINECTOMY FACETECTOMY AND FORAMINOTOMY VERTEBRAL SEGMENT LUMBAR SINGLE Neurogenic claudication Lumbar radiculopathy Lumbar disc herniation 12/18/2024 1:37 PM EDT [facility] MA[facility] ORStart: 12-18-2024 End: 22-11-7150Lauwuynk incl w/dcmprsn nrv root 1 intrspc lumbrDISCECTOMY POSTERIOR LUMBAR Neurogenic claudication Lumbar radiculopathy Lumbar disc herniation 12/18/2024 1:37 PM EDTOSU MAIN ORStart: 17-06-8433Giebmtspni hospital visit by wpemtflyz00/21/2025 1:37 PM EDT Hospital Encounter [facility] [address] [place] [address] Maria D Ansari MD [address] [place] [address] Neurogenic claudicationBASUComment on above:Neurogenic claudicationStart: 12-18-2024 End: 26-63-4116Jmlmwlcx incl w/dcmprsn nrv root 1 intrspc lumbrDISCECTOMY POSTERIOR LUMBAR Neurogenic claudication Lumbar radiculopathy Lumbar disc herniation 12/18/2024 7:27 AM EDTOSU [facility] MAIN ORStart: 12-17-2024 End: 01-66-7733Zfnjhzh encounter gegpkksrj30/20/2025 8:40 AM EDT Procedure Visit [facility]ER[facility] [address] [facility] [facility] [place] [id number] Rodrigue Proctor DO [address] [place] [address] [facility] RUBIOGYNStart: 12-06-2024 End: 43-22-8652ycopsaflcy95/09/2025 10:30 AM EDT Pre-Operative Nurse Assessment Telehealth Pre Procedure Preparation [address] [place] [address] Soledad Beltran, RNTelehealth Pre Procedure PreparationStart: 11-23-2024 End: 72-60-7066rhkamxsflaSZSS [facility] TherapyStart: 11-21-2024 End: 33-81-6438Kxyqafzkthwr / ancillary services yqhzzjeauf29/24/2025 10:30 AM EDT Ancillary Procedure [facility] [address] [facility] [address] [place] [address] PDWC [facility] ImagingStart: 11-21-2024 End: 07-44-0982llunvpspuu74/24/2025 7:30 AM EDT Treatment [facility] [address] [address] [place], [id number] Milly Osman PTANOMS [facility] TherapyStart: 11-19-2024 End: 11-16-4192fsquwqyvfzSPCU [facility] TherapyStart: 11-16-2024 End: 85-29-1973jynzcbujad24/19/2025 1:30 PM EDT Treatment [facility] [address] [place], [id number] Milly Osman PTANOMS [facility] TherapyStart: 11-15-2024 End: 64-38-2689tfcpzfemzsJXPB [facility] TherapyComment on above:Arrived Start: 11-14-2024 End: 40-62-3288CV Lumbar spine WO contrastMR lumbar spine wo contrast Imaging Routine Acute bilateral low back pain with right-sided sciaticaExpected: 11/14/2024, Expires: 11/14/2025NOS[facility] Work Phone: Comment on above:Expected: 11/14/2024, Expires: 11/14/2025Start: 11-14-2024 End: 54-49-5918nugvrkqnaj49/17/2025 7:00 AM EDT Treatment [facility] [address] [place], [id number] Presley Alarcon PTANOMS [facility] TherapyStart: 11-12-2024 End: 92-62-3763iaatdofspm78/15/2025 8:00 AM EDT Treatment [facility] [address] [place], [id number] Presley Alarcon PTANOMS [facility] TherapyStart: 11-09-2024 End: 92-13-0639njlbmvrfbkEIYS [facility] TherapyComment on above:Arrived Start: 11-07-2024 End: 63-15-2536zbwjhrjgfw35/10/2025 9:30 AM EDT Evaluation [facility] [address] [place] [address] Ayde Kim, PT Acute bilateral low back pain with right-sided sciatica [facility] TherapyComment on above:Acute bilateral low back pain with right-sided sciaticaStart: 11-05-2024 End: 79-92-9859UJ Lumbar spine Views W flexion and W extensionXR lumbar spine 4+ views w flexion extension Imaging Routine Acute bilateral low back pain with right-sided sciatica Expected: 11/05/2024, Expires: 11/05/2025[facility] Work Phone: Comment on above:Expected: 11/05/2024, Expires: 11/05/2025Start: 11-05-2024 End: 17-98-2866Ulcikgy encounter uitvukrze79/08/2025 12:30 PM EDT [facility] [address] [place] [facility] [place] [address] Chelle Santiago NP [address] [place] [address] ArrivedNONorthBay Medical CenterComment on above:Arrived Start: 17-92-0607ZZXDU-19 VACCINE ( season)COVID-19 VACCINE ( season)[facility] Hospitaltart: 49-98-9682Bbxiniphc vaccination Influenza Vaccine (#1)NOM HealthcareStart: 10-22-2024 End: 00-07-5988Evwttcv encounter gakkdtzsc70/25/2025 8:30 AM EDT Office Visit [facility] OB [address] [place] [address] Rodrigue Proctor, DO [address] [place] [address] NOMS BCP OBStart: 09-06-2024 End: 82-94-5293Iutmmnn encounter procedureNOMS SWS DERMComment on above:Arrived Start: 01-20-2024 End: 23-45-4768Nskmovwyrbdjz metabolic 2000 panel - Serum or PlasmaComprehensive metabolic panel Lab Routine Encounter for wellness examination Morbid obesity (CMS/HCC) Expected: 01/20/2024 (Approximate), Expires: 01/19/2025[facility] Comment on above:Expected: 01/20/2024 (Approximate), Expires: 01/19/2025Start: 01-20-2024 End: 74-89-9531Jwixl 1996 panel - Serum or PlasmaLipid panel Lab Routine Encounter for wellness examination Morbid obesity (CMS/HCC) Hypertriglyceridemia (CMS/HCC) Screening, lipid Expected: 01/20/2024 (Approximate), Expires: 01/19/2025[facility] Work Phone: Comment on above:Expected: 01/20/2024 (Approximate), Expires: 01/19/2025Start: 01-20-2024 End: 03-51-6441SWE W/REFLEX TO FT4TSH W/REFLEX TO FT4 Lab Routine Encounter for wellness examination Acquired hypothyroidism (CMS/HCC) Expected: 01/20/2024 (Approximate), Expires: 01/19/2025NOSD HealthcareComment on above:Expected: 01/20/2024 (Approximate), Expires: 01/19/2025Start: 01-20-2024 End: 32-06-5411Cfgszfe encounter niwcrihbx78/22/2024 8:00 AM EST Office Visit [facility] [address] [place] [address] Chelle Santiago NP [address] [place] [address] [facility] FNR FMComment on above:ArrivedStart: 11-21-2023 End: 57-45-3188Mowlymr encounter vxnktqapi00/23/2024 8:30 AM EDT Office Visit [facility] FM [address] [place] [address] [phone], Sarah, NP [address] [place] [address] N[facility] FNR FMStart: 71-31-1572Snxjvcbdl vaccinationInfluenza Vaccine (#1)NOM[facility] HealthcareStart: 94-38-0811Orbynhu vaccinationTETANGerman Hospital Start: 17-50-2202Jhhtbelyl for malignant neoplasm of cervixCERVICAL CANCER SCREENING [facility] CenterStart: 87-40-4938LLA screeningHIV SCREENING DISCUSSIONOSU [facility] Main Campustart: 03-58-6575Kdwpsnpii C screeningHEPATITIS C VIRUS SCREENINGOSKettering Health Greene MemorialBasi metabolic 2000 panel - Serum or PlasmaBASIC METABOLIC PANEL Lab Routine Lumbar radiculopathy Ordered: 12/05/2024OSKettering Health Greene MemorialComment on above: Ordered: 12/05/2024BC,PLATELETSCBC,PLATELETS Lab Routine Lumbar radiculopathy Ordered: 12/05/2024OSKettering Health Greene MemorialComment on above:Ordered: 12/05/2024 PT,INR,PTTPT,INR,PTT Lab Routine Lumbar radiculopathy Ordered: 12/05/2024[facility] HealthComment on above:Ordered: 12/05/2024 End: 26-89-1102HL Greater than 1 hourOSKettering Health Greene MemorialComment on above: One Time for 1 Occurrences starting 12/18/2024 until 12/18/2024SCREEN: MRSA/MSSA SCREEN: MRSA/MSSA Microbiology Routine Lumbar radiculopathy Ordered: 12/05/2024 [facility] GeneralComment on above:Ordered: 12/05/2024TYPE AND SCREEN - PREADMISSIONTYPE AND SCREEN - PREADMISSION Blood Bank Routine Lumbar radiculopathy Ordered: 12/05/2024[facility] HealthComment on above: Ordered: 12/05/2024XR Chest PA and LateralXR CHEST PA AND LATERAL 2 VIEWS Imaging Routine Lumbar radiculopathy Ordered: 12/05/2024Sum[facility] HealthComment on above:Ordered: 12/05/2024 Immunizations Immunization DateImmunizationNotesCare ZjywupqjJfzwrfui39-87-5009tnxppaksw, seasonal, injectable, preservative Aurora Santiago [employer]HOUSE [employer] Work Phone: [facility] CenterGwxnsfjgoe27-03-1601ximwgcwsh virus vaccine, unspecified formulationRell Cramer MD Work Phone: [facility] CenterQwvynaehiv26-09-9063ucxicpajq, injectable, quadrivalent, preservative Aurora Santiago WAREHOUSE FOREMAN Work Phone: [facility] CenterUnzurzxdmc33-29-9987rwfotugxr virus vaccine, unspecified formulationRodrigue Proctor DO Work Phone: [facility] CenterVkoztuuxoo35-37-5640rahdwlpjp, injectable, quadrivalent, preservative freeSara Kamfer WAREHOUSE FOREMAN Work Phone: [facility] CenterEdtijqjoen19-44-7631Smmkucxji, injectable, Madin Adelaide Canine Kidney, quadrivalent with preservativeSara Volodymyrhonorhealth [facility] WAREHOUSE FOREMAN Work Phone: [address] [place], [place] [address]Cndtnnougm18-39-6387voxwnvmir, seasonal, injectable, preservative freeSara Volodymyrfer WAREHOUSE FOREMAN Work Phone: [phone] [place], [place] [address]Cgyehcnmtc37-71-1712ztfsqbquxtidb ACWY vaccine, unspecified formulationSColumbus Regional Healthcare System WAREHOUSE FOREMAN Work Phone: [place] [address]Ojnyokulse90-17-4770xgzbrzlbmtlip polysaccharide (groups A, C, Y and W-135) diphtheria toxoid conjugate vaccine (MCV4P)Chelle Helmallisonhenok WAREHOUSE FOREMAN Work Phone: [facility] CenterUquailkbbu50-57-2256kfvwdkwdw, seasonal, injectable, preservative freeSarah Volodymyrfer WAREHOUSE FOREMAN Work Phone: [facility] CenterGrliyzfdkh42-22-2716pcmyduhkt, seasonal, injectable, preservative freeSarah Kampfer WAREHOUSE FOREMAN Work Phone: [facility] CenterJappekgjbt73-10-3955bjsmkpbcg, seasonal, injectable, preservative freeSarah Kampfer WAREHOUSE FOREMAN Work Phone: [address] [place], [place] [address]Tfsjhrraxd91-51-3742smxtmnuli virus vaccine, whole virusSaNovant Health Brunswick Medical Center WAREHOUSE FOREMAN Work Phone: [facility] CenterNadytncdra59-31-7978yrkjkmrcm, seasonal, injectable, preservative freeSarah Kampfer WAREHOUSE FOREMAN Work Phone: [facility] CenterQtoxwpufte57-28-6262dxxtn dgsqbfmxr-O2O2-15, preservative-free, injectableSarah Volodymyrpfer WAREHOUSE FOREMAN Work Phone: [facility] CenterVbdlyyqwon06-96-3955hslbgtcik, seasonal, injectable, preservative freeChelle Helmhonorhealth [facility] WAREHOUSE FOREMAN Work Phone: [phone] CenterLnzlppdfnk70-68-0941yuswrcldj, seasonal, injectable, preservative freeAura Volodymyrhonorhealth [facility] WAREHOUSE FOREMAN Work Phone: [phone] [place], [place] [address]Nqwppxbeyv28-56-4565xmotaghdhrhed ACWY vaccine, unspecified formulationSColumbus Regional Healthcare System WAREHOUSE FOREMAN Work Phone: [phone] [place], [place] [address]Xqoaheyoeu78-71-5095kdeozuwafvcek polysaccharide (groups A, C, Y and W-135) diphtheria toxoid conjugate vaccine (MCV4P)Chelle Padronjames e. [facility] WAREHOUSE FOREMAN Work Phone: [phone] [place], [place] [address]Qnoriklgoy52-43-4178ahnoqau toxoid, reduced diphtheria toxoid, and acellular pertussis vaccine, adsorbedmercy health – [facility] Volodymyrhonorhealth [facility] WAREHOUSE FOREMAN Work Phone: [phone] [address] StreetUbzoctgowi96-93-6225azfnkrg toxoid, unspecified formulationSgrays harbor community hospital Volodymyrhonorhealth [facility] WAREHOUSE FOREMAN Work Phone: [phone] [address] StreetTwiayfeilu17-05-8828cozqxpsar virus vaccineSaraCentinela Freeman Regional Medical Center, Memorial [facility] WAREHOUSE FOREMAN Work Phone: [phone] [address] StreetBjwnhcfalm79-18-5186vkaiv papilloma virus vaccine, quadrivalentmercy health – the jewish hospital Volodymyrhonorhealth [facility] WAREHOUSE FOREMAN Work Phone: [phone] [address] StreetHukonlgors87-49-9987babnn papilloma virus vaccine, quadrivalentmercy health – the jewish hospital Volodymyrhonorhealth [facility] WAREHOUSE FOREMAN Work Phone: [phone] CenterJucdzwvpyt75-20-3812sujed papilloma virus vaccine, quadrivalentmercy health – the jewish hospital Volodymyrhonorhealth [facility] WAREHOUSE FOREMAN Work Phone: [phone] [place], [place] [address]Rvubgjqurz95-16-5400qatrgwzoa, seasonal, injectableSamercy health – the jewish hospital Volodymyrhonorhealth [facility] WAREHOUSE FOREMAN Work Phone: [phone] CenterDafzsnajea96-45-7893ximbtkzbp virus vaccine, whole virusSaNovant Health Brunswick Medical Center WAREHOUSE FOREMAN Work Phone: [phone] [address] StreetRqezbslopw06-13-3716ejesxnaolc, tetanus toxoids and acellular pertussis vaccineSColumbus Regional Healthcare System WAREHOUSE FOREMAN Work Phone: [phone] CenterKrzreihufl69-77-6819dthtjycgdx, tetanus toxoids and pertussis vaccineSColumbus Regional Healthcare System WAREHOUSE FOREMAN Work Phone: [phone] CenterMmhqifwfbv31-11-6506daaysbb, mumps and rubella virus vaccineSgrays harbor community hospital Volodymyrhonorhealth [facility] WAREHOUSE FOREMAN Work Phone: [phone] [place], [place] [address]Xugjhbhtoe30-69-8051gkretbotzn vaccine, unspecified formulationSgrays harbor community hospital Volodymyrhonorhealth [facility] WAREHOUSE FOREMAN Work Phone: [phone] [place], [place] [address]Fxnknifnsd52-14-3131ynzvolrhcv, tetanus toxoids and acellular pertussis vaccineSgrays harbor community hospital Volodymyrhonorhealth [facility] WAREHOUSE FOREMAN Work Phone: [phone] [place], [place] [address]Qumocxcckd53-11-1567wwawligffl, tetanus toxoids and pertussis vaccineSColumbus Regional Healthcare System WAREHOUSE FOREMAN Work Phone: [phone] [address]Vxgokxmtrx72-40-6528vkxvtnxmjp vaccine, unspecified formulationSgrays harbor community hospital Volodymyrhonorhealth [facility] WAREHOUSE FOREMAN Work Phone: [phone] [place], [place] [address]Sgqkrncvyq59-86-3773thzcfswcfsd influenzae type b vaccine, conjugate unspecified formulationSgrays harbor community hospital Volodymyrhonorhealth [facility] WAREHOUSE FOREMAN Work Phone: [phone] [place], [place] [address]Qsbuzysuba14-09-6966vstfjvm, mumps and rubella virus vaccineSgrays harbor community hospital Volodymyrhonorhealth [facility] WAREHOUSE FOREMAN Work Phone: [phone] [place], [place] [address]Jhsdnjshyc32-22-9958hyskhfhqv virus vaccineSgrays harbor community hospital Volodymyrhonorhealth [facility] WAREHOUSE FOREMAN Work Phone: [phone] [address]Chqxngjwxm34-10-0915qcdbjtjznv, tetanus toxoids and acellular pertussis vaccineSgrays harbor community hospital Volodymyrhonorhealth [facility] WAREHOUSE FOREMAN Work Phone: [phone] [address]Ybrelqzynx69-07-9117qbflfjccri, tetanus toxoids and pertussis vaccineSColumbus Regional Healthcare System WAREHOUSE FOREMAN Work Phone: [phone] [place], [place] [address]Ejvsmbefqe27-95-6216qknpuyhehhs influenzae type b vaccine, conjugate unspecified formulationSgrays harbor community hospital Volodymyrhonorhealth [facility] WAREHOUSE FOREMAN Work Phone: [phone] [place], [place] [address]Wgwgppiyxg03-18-7500vtvgdybia B vaccine, pediatric or pediatric/adolescent dosageSara Volodymyrhonorhealth [facility] WAREHOUSE FOREMAN Work Phone: [phone] [place], [place] [address]Nvmqdscmay25-85-9934jjotbxvbzj, tetanus toxoids and acellular pertussis vaccineSColumbus Regional Healthcare System WAREHOUSE FOREMAN Work Phone: [phone] [address]Bbwwhaphuw70-08-8989wmtzespuni, tetanus toxoids and pertussis vaccineSColumbus Regional Healthcare System WAREHOUSE FOREMAN Work Phone: [facility] CenterWvxpicenfg88-50-3635kcrowewcfxe influenzae type b vaccine, conjugate unspecified formulationSColumbus Regional Healthcare System WAREHOUSE FOREMAN Work Phone: [facility] CenterUjfvuuladt36-05-3554rupdbtlzrm vaccine, unspecified formulationSColumbus Regional Healthcare System WAREHOUSE FOREMAN Work Phone: [facility] CenterQlppobmspm49-99-6226iyucvivofh, tetanus toxoids and acellular pertussis vaccineSColumbus Regional Healthcare System WAREHOUSE FOREMAN Work Phone: [facility] CenterCmilvacrkm01-16-4895mttlzwxkbg, tetanus toxoids and pertussis vaccineSColumbus Regional Healthcare System WAREHOUSE FOREMAN Work Phone: [facility] CenterZzzfplwhof08-07-9146tswjywkphti influenzae type b vaccine, conjugate unspecified formulationSColumbus Regional [facility] System WAREHOUSE FOREMAN Work Phone: [facility] CenterGgngrlnicp08-02-8784parnpqktk B vaccine, pediatric or pediatric/adolescent dosageSColumbus Regional Healthcare System WAREHOUSE FOREMAN Work Phone: [facility] CenterGhdmzpzxrv23-59-3154tgeatidgsc vaccine, unspecified formulationSColumbus Regional [facility] System WAREHOUSE FOREMAN Work Phone: [facility] CenterKtwtfmwlro84-56-8761xjxjnugjh B vaccine, pediatric or pediatric/adolescent dosageSColumbus Regional Healthcare System WAREHOUSE FOREMAN Work Phone: [facility] Payers DatePayer CategoryPayerPolicy [id number]. [facility] [id number] Care (unspecified)[id number] BCBS [id number] 2021-[facility] [phone] [facility] [id number] [place] [id number] [id number] 2.16840.1.053847.3.57[id number] 2.16840.1.782234.3.57[id number] 2.16840.1.513827.3.57[id number] 2.840.1.339681.3.57[id number] 2.16840.1.064985.3.57[id number] 2.16840.1.134277.3.57[id number] 2.16.840.1.997954.3.57[id number] 2.16840.1.234655.3.57[id number] 2.16840.1.443242.3.579.[id number] 2.16840.1.334463.3.57[id number] 2.16.840.1.408853.3.57[id number] 2.16840.1.003338.3.57[id number] 2..0.1.229872.3.57[id number] 2..840.1.139025.3.57[id number] 2.0.1.299522.3.57[id number] 2.0.1.707590.3.57[id number] 2.0.1.246225.3.579.2.[id number] Social History DateTypeDetailFacilityStart: 01-24-2023 End: 91-23-3305Uxboapy smoking status NHISNever smoked tobaccoNOMS Healthcare Start: 01-24-2023 End: 91-77-9730Mcjrmmh use and exposureSmokeless tobacco non-userNOMS Healthcare Start: 10-17-2023 End: 45-57-7831Lemyuqnsw beverage intakeCurrent drinker of alcohol (finding)[facility] HealthcareStart: 01-23-2023 End: 51-63-3346Lxsracv of Social functionNOMS HealthcareStart: 01-23-2023 End: 13-56-4263Ssuykakwkwz, Afraid, Rape, and Kick questionnaire [HARK]NOMS HealthcareWithin the last year, have you been afraid of your partner or ex-partner?NoNOMS HealthcareDo you belong to any clubs or organizations such as gnosticism groups, unions, fraternal or athletic groups, or school groups?YesNOMS HealthcareAre you now , , , , never or living with a partner?Never marriedNOMS HealthcareHow often to you have a drink containing alcohol?2-4 times a monthNOMS HealthcareHow many standard drinks containing alcohol do you have on a typical day?1 or 2NOMS HealthcareHow often do you have 6 or more drinks on 1 occasion?Less than monthlyNOMS HealthcareHow hard is it for you to pay for the very basics like food, housing, medical care, and heatingNot hard at allNOSD HealthcareDo you feel stress - tense, restless, nervous, or anxious, or unable to sleep at night because yourmind is troubled all the time - these days [OSQ]Rather muchNOSD Healthcare(I/We) worried whether (my/our) food would run out before (I/we) got money to buy more.Never trueSaint Francis Medical CenterStart: 48-87-2281Fbfeagu Comment1-2 drinks less than monthly in the past year, Caffeine intake: 1 cups per day coffee, soda/popINTERMOUNTAIN HEALTHCARE HealthcareStart: 09-80-7715Agv assigned at birthNot on [facility] CenterStart: 05-12-2022 Gender identityIdentifies as female gender (finding)[facility] CenterStart: 12-03-2024 End: 37-61-5516Yhgesvhsm beverage intakeLifetime non-drinker (finding)[facility] Hospitaltart: 48-24-1731Dijmqhr Commentsocially once a monthCincinnati Shriners Hospitaltart: 21-25-2071KclIcjblg (finding)[facility] HealthHow often do you have 6 or more drinks on 1 occasion?NeverSumma Health NEGATED: Highlighted rowStart: NINFHistory of tobacco usePassive smokerSumma Health Functional Status LukoDeqtjikskqUxqngrPaojtopf57-63-6579Efzry score [AUDIT-C]2 12/06/2024 10:33 AM EDT Soledad Beltran RNOSKettering Health Greene Memorial09-08-2025Patient Health Questionnaire 2 item (PHQ-2) [Reported][facility] Clinical Notes 01-20-2024 to 12-18-2024 Note Date & NtwoLjviKcpiutiq96-58-0163 Nurse Note* Nursing Notes - Charissa Tom RN - 12/18/2024 12:37 PM EDT AVS reviewed with pt and family all verbalized understanding.Pt will call doctor if they have not reached out to her for post op appointment. A copy of the AVS was given to the patient. The following3 prescriptions are waiting at the patients local pharmacy: acetaminophen, cyclobenzaprine, and oxycodone. PIV x2 removed and all belongings accounted for. [facility]. [facility]10-21-2025 Miscellaneous Notes* Nursing Notes - Charissa Tom RN - 12/18/2024 12:37 PM EDT AVS reviewed with pt and family all verbalized understanding.Pt will call doctor if they have not reached out to her for post op appointment. A copy of the AVS was given to the patient. The following3 prescriptions are waiting at the patients local pharmacy: acetaminophen, cyclobenzaprine, and oxycodone. PIV x2 removed and all belongings accounted for. [facility] transported [facility] by staff. * Nursing Notes - Charissa Tom RN - 12/18/2024 11:40 AM EDT RN reviewed AVS with patient and her sister. Many questions were brought up that were not clear to this RAMÓN Anderson MD was text paged as follows: [facility] [address] has questions about AVS. please [phone] thanks Charissa documented in this encounterSumma Health10-21-2025 Nurse Note* Nursing Notes - Charissa Tom RN - 12/18/2024 11:40 AM EDT RN reviewed AVS with patient and her sister. Many questions were brought up that were not clear to this RAMÓN Anderson MD was text paged as follows: [facility] [address] has questions about AVS. please [phone] gwendolyn Carrington [facility]10-21-2025 Hospital Discharge instructions* Discharge Instructions* Evan Anderson MD - 12/18/2024 9:06 AM EDT Medication Management: Pain Medication: A prescription for pain medication is typically sent home with you. Narcotic pain medicine can cause constipation. Be sure to take stool softeners or laxatives while you are taking narcotic pain medicine. Eat plenty of fruits, vegetables, juices, and drink 6-8 glasses of water each day. Be sure to take your pain medicine with food to avoid nausea. Do not drink any alcoholic beverages until approved by your surgeon. Do not drive after taking prescription pain medicine as it can make you drowsy. If this medicine is too strong, or no longer necessary, you may take: Tylenol Extra-strength/Acetaminophen, 2 tablets every 4-6 hours as needed for mild pain. DO NOT TAKE MORE THAN 4000MG PER DAY. Refills: Pain medication is typically refilled by your neurosurgeon for a short time following surgery. Please call their office for refills [phone]. Pain med refills that fall on a weekend need to be called in to our office by noon the Tuesday before. Please provide the neurosurgery office a minimum of 24 hours to refill your prescriptions. If your pain continues for longer than typical you will be referred to your primary care physician (or pain management physician if you have one) for ongoing pain management. Anti-Inflammatories: Unless approved by your surgeon, do not take any non-steroidal anti-inflammatory drugs, called NSAIDs. If you had a microdiskectomy or laminectomy only (no fusion), you may likely be able to resume these medications 48 hours following surgery. These medicines include: Ibuprofen (Motrin or Advil) Naprosyn (Naproxen or Aleve) Arthritis medications such as Celebrex following surgery. Blood Thinners: If you are taking aspirin, clopidogrel (Plavix), warfarin (Coumadin) or other blood thinners, you must talk to your surgeon about when to restart these medicines. Activity: Slowly progress to performing normal daily activities. Lifting restrictions: < 20lbs for the first 3 months. Avoid exercise that will cause you to sweat until incision is completely healed Do not drive or operative power tools or machinery while taking pain medication that can cause drowsiness. Avoid all tub baths, hot tubs and swimming pools until your surgeon has given approval to soak the incision in water. You can get your incision wet with constant moving water in shower, just avoid any submerging underwater. Your surgeon will instruct you when it is safe to return to work. Diet: You may resume your home diet. Add protein to your diet to promote surgical wound healing. You may purchase protein supplements [id number]. It is important to get enough fluid to stay hydrated to prevent dizziness and falling. If you are diabetic, continue to monitor your blood glucose levels. Tight glucose control is important for optimal wound healing. When to call your surgeon's office: If you have one or more of these signs, call your surgeon s office ([phone]): Temperature of 100.4 degrees Fahrenheit or greater (38 degrees Celsius) Drainage from your incision Skin around the incision becomes red, warm, swollen or painful Leg swelling, calf tenderness or pain. When to go to the Emergency Department: If you have any of these problems go to the nearest emergency department or call 911 right away: New or worse signs of weakness, numbness or inability to move an arm or leg. Problems with balance or walking. This may be only on one side of the body. Nausea, vomiting or diarrhea along with swelling of the stomach or abdomen. Problems with loss of bladder or bowel control, or inability to urinaty with feeling of pain in thelower abdomen Breathing problems Chest pain (including chest pressure or tightness) Redness, swelling and/or pain in both of your legs Change in the temperature of your leg(s) DERMABOND: Your incision(s) may have been closed with a surgical glue called Dermabond. This is a clear transparent skin closure like glue. It will remain in place for 10-14 days and wear off by itself. Keep the incision Clean and Dry. Leave the incision open to air. No further care is needed unless you have a problem. Incision Care: Check your incision every day for redness or drainage. It is normal to have some bruising, swellingor tenderness around the incision. If you were told to keep your wound covered, the dressing needs to be changed every other day, or as needed, with Medipore island dressing provided to you at discharge. NEVER leave a wet or dirty dressing on your incision. If your incision is damp or dirty it can delay healing and lead to infection. Do not scratch or pick at the incision as it heals. Protect your incision by: Cleaning the area around the wound and putting on a new dressing Taking a shower if it has been 3 or more days after surgery Do not take a tub bath or submerge your incision under water Dry the wound completely Do not apply any of these products to the wound unless told to do so by your surgeon: lotions, creams, ointments (such as Neosporin), alcohol, hydrogen peroxide, powder, or sunscreen Protect your wound from sun exposure. Wear loose fitting clothes and materials that do not rub the skin around the incision. Avoid clothes with tight elastic waist bands. Tobacco use delays healing. If you need help with quitting tobacco, please talk with your doctor. Showering: For the first 2 days or 48 hours after surgery, do sponge baths. Avoid getting the incision and dressing wet. For example, if you had your surgery on Tuesday, do only sponge baths until Tuesday. Your incision needs to stay dry and covered for 2 days following surgery. Beginning the third day after surgery: When showering, use a mild soap to gently clean the entire area. Rinse well with water. When drying off, use a clean towel. Very gently pat the wound dry. Do not rub it with a towel. It is okay to thel the wound air dry. Neurosurgery Follow Up: Locations: (1) [facility]: [address] [place] [id number] (2) [facility]: [address] [place] [address], [address] Floor, [place] [address] Neurosurgery Office Neurosurgery Office Contact information: You may call your neurosurgeon s office Tuesday through Tuesday between 8:30am and 4:30pm if you havequestions [phone]. The outpatient nurse may also be available to answer questions at that time. For after hours or the weekend, you may call the office which will take you to the answering service. documented in this [facility]10-21-2025 History and physical note* Alejandro Awan MD - 12/18/2024 6:36 AM EDT Neurosurgery History and Physical Neurosurgery Preoperative History and Physical Date of surgery: 12/18/2024 HPI: Chelle House is a 29 y.o. female with: Neurogenic claudication [R29.818] Lumbar radiculopathy [M54.16] Lumbar disc herniation [M51.26] here for Procedure(s) (LRB): L5-S1 discectomy R side (Right) with Maria D Finn MD. Vitals: BP (!) 144/95 (BP Location: Left arm, BP Position: Lying) Comment: RN, notified. Pulse 106 Temp 98.2 F (36.8 C) (Infrared) Resp 11 Ht 1.702 m (5' 7 ) Wt 131.1 kg (289 lb) SpO2 97% BMI 45.26 kg/m Smoking Status Never Past Medical History[1] Past Surgical History[2] Family History Problem Relation Age of Onset Prostate Cancer Maternal Grandfather Other - Specify Sister Kidney failure Social History[3] Allergies Allergies[4] Infusions Lactated ringers 75 mL/hr at 12/18/24 0605 Scheduled Meds Scopolamine 1 patch Transdermal Once And VERIFY LINKED PATCH PLACEMENT Other Q12H PRN Meds: ceFAZolin Home Meds Prior to Admission medications Medication Sig Start Date End Date Taking? Authorizing Provider Desogestrel-Ethinyl Estradiol (APRI PO) Take by mouth at bedtime. Yes Historical Provider Aspirin 325 MG tablet Take 1 tablet by mouth daily. Patient taking differently: Take 1 tablet by mouth every 6 hours as needed for Moderate Pain. Historical Provider buPROPion 100 MG tablet Take 1 tablet by mouth every evening. Historical Provider Cetirizine 10 MG tablet Take 1 tablet by mouth daily. Patient taking differently: Take 1 tablet by mouth every evening at 6 PM. Historical Provider Cyclobenzaprine 10 MG tablet Take 1 tablet by mouth as needed. 11/05/24 Historical Provider Ibuprofen 200 MG/10ML oral suspension Take 20 mL by mouth every 6 hours as needed for Mild Pain. Patient not taking: No sig reported Historical Provider Naltrexone 50 MG tablet Take 1 tablet by mouth every evening. Historical Provider Physical Exam: NAD AOx3 PERRL EOMI FS TM FCx4 5/5 BUE 5/5 BLE except 4/5 R KE SILT Previously on ASA 325 mg - last dose > 1 wk ago A/P: Chelle House is a 29 y.o. female here for Procedure(s) (LRB): L5-S1 discectomy R side (Right). - to OR [1] Past Medical History: Diagnosis Date Sciatic nerve pain, right [2] No past surgical history on file. [3] Social History Tobacco Use Smoking status: Never Passive exposure: Never Smokeless tobacco: Never Vaping Use Vaping status: Never Used Substance Use Topics Alcohol use: Never Comment: socially once a month Drug use: Never [4] Allergies Allergen Reactions Tetracyclines & Related Visual Change CAUSED FLUID BUILD UP OPTICAL NERVE TEMPORARY LOSS OF VISION Cosigned by Maria D Finn MD at 12/18/2024 10:35 AM EDT [facility] Work Phone: 1(604) 490-496810-21-2025 History and physical note* Alejandro Awan MD - 12/18/2024 6:36 AM EDT Neurosurgery History and Physical Neurosurgery Preoperative History and Physical Date of surgery: 12/18/2024 HPI: Chelle House is a 29 y.o. female with: Neurogenic claudication [R29.818] Lumbar radiculopathy [M54.16] Lumbar disc herniation [M51.26] here for Procedure(s) (LRB): L5-S1 discectomy R side (Right) with Maria D Finn MD. Vitals: BP (!) 144/95 (BP Location: Left arm, BP Position: Lying) Comment: RN, notified. Pulse 106 Temp 98.2 F (36.8 C) (Infrared) Resp 11 Ht 1.702 m (5' 7 ) Wt 131.1 kg (289 lb) SpO2 97% BMI 45.26 kg/m Smoking Status Never Past Medical History[1] Past Surgical History[2] Family History Problem Relation Age of Onset Prostate Cancer Maternal Grandfather Other - Specify Sister Kidney failure Social History[3] Allergies Allergies[4] Infusions Lactated ringers 75 mL/hr at 12/18/24 0605 Scheduled Meds Scopolamine 1 patch Transdermal Once And VERIFY LINKED PATCH PLACEMENT Other Q12H PRN Meds: ceFAZolin Home Meds Prior to Admission medications Medication Sig Start Date End Date Taking? Authorizing Provider Desogestrel-Ethinyl Estradiol (APRI PO) Take by mouth at bedtime. Yes Historical Provider Aspirin 325 MG tablet Take 1 tablet by mouth daily. Patient taking differently: Take 1 tablet by mouth every 6 hours as needed for Moderate Pain. Historical Provider buPROPion 100 MG tablet Take 1 tablet by mouth every evening. Historical Provider Cetirizine 10 MG tablet Take 1 tablet by mouth daily. Patient taking differently: Take 1 tablet by mouth every evening at 6 PM. Historical Provider Cyclobenzaprine 10 MG tablet Take 1 tablet by mouth as needed. 11/05/24 Historical Provider Ibuprofen 200 MG/10ML oral suspension Take 20 mL by mouth every 6 hours as needed for Mild Pain. Patient not taking: No sig reported Historical Provider Naltrexone 50 MG tablet Take 1 tablet by mouth every evening. Historical Provider Physical Exam: NAD AOx3 PERRL EOMI FS TM FCx4 5/5 BUE 5/5 BLE except 4/5 R KE SILT Previously on ASA 325 mg - last dose > 1 wk ago A/P: Chelle House is a 29 y.o. female here for Procedure(s) (LRB): L5-S1 discectomy R side (Right). - to OR [1] Past Medical History: Diagnosis Date Sciatic nerve pain, right [2] No past surgical history on file. [3] Social History Tobacco Use Smoking status: Never Passive exposure: Never Smokeless tobacco: Never Vaping Use Vaping status: Never Used Substance Use Topics Alcohol use: Never Comment: socially once a month Drug use: Never [4] Allergies Allergen Reactions Tetracyclines & Related Visual Change CAUSED FLUID BUILD UP OPTICAL NERVE TEMPORARY LOSS OF VISION Cosigned by Maria D Finn MD at 12/18/2024 10:35 AM EDT [facility] History of Present illness Narrative* Tigist Turner - 12/03/2024 10:45 AM EDT This [employer] verified the patients name and date of . * Maria D Finn MD - 12/03/2024 10:45 AM EDT Chelle House is a pleasant 29-year-old woman. She comes in with several months of severe right-sided S1 radiculopathy. She has tried some oral steroids. She has tried physical therapy. She is on cyclobenzaprine, ibuprofen. Her symptoms are getting worse. She has ongoing paresthesias and worsening pain in her right leg. She has a positive straight leg raise on exam. She has 5/5 strength in her iliopsoas, quadriceps, hamstrings, ankle dorsiflexors and plantar flexors. She has an MRI report showing a right-sided disk with mass effect on the right S1 nerve root. We discussed a hemilaminectomy, diskectomy, and we talked risks, benefits, expected outcomes, and recovery time. I answered all her questions. She would like to move forward with surgery and we will get her scheduled. (DOC:[id number]) * Glenda Alston RN - 12/03/2024 10:45 AM EDT Lumbar Discectomy L5/S1 Surgery education material, Preparing Skin Education education material provided for planned surgery with Dr Drew. Hibiclens soap was provided to patient at clinic visit. The java websphere developer will contact you to arrange your surgery date and inform you if it will be atthe [facility] ([address], [place] [address]) or [facility] ([address], [place] [address]). An automated call will be sent the day prior to your surgery with your arrival time, if you do not receive this call by 2 pm please call us. Pre-Operative Testing You will be scheduled with a [facility] nurse to go over your Medical History and Medications. After this call, you will be told if you need to meet with Anesthesia. Please complete pre-op labs and chestx-ray prior to your ComPAC appointment. Pre-op labs (CBC, PT/PTT/INR,BMP, Urinalysis Reflex to Culture, Type & Screen, MRSA Swab) and Chest X-Ray tests need to be completed 2-4 weeks prior to your surgery date at [address] between 7 am and 2 pm M-F. Please be aware that MRSA nose swab is done ONLY at Pre-Procedure Evaluation and Assessment Please call [phone] only if you cannot find their office located on the 2nd floor of [facility] near the lab-you must check in separately for this swab. If this pre-op testing is done outside of [facility], please call the office at [phone] when completed. These results should be faxedto [facility] at [phone]. Medication Guidelines Please consult your physician regarding any medications that might need held prior to surgery. If you have any questions on what medication to stop taking please call us at [phone]. Failure to stop taking some medications may result in your surgery being cancelled. Post operative pain medication management is limited to the initial 6 weeks after surgery-a pain management referral can be requested after that time if needed. Paperwork Guidelines Any STD/FMLA papers can be faxed to this department [phone] or sent via [employer] andwill be faxed back to sender once completed. This office is limited to only being able to complete Short Term Disability/FMLA for a maximum of 12 weeks starting on date of surgery. If you need additional time off please contact your PCP to discuss possible options. Post-Operative Information Expect a two week post-op Nurse Only visit only if liban/sutures are placed during surgery. If nosutures/liban were placed, your first follow up appointment will be at 6-8 weeks after surgery with an PEPE (Advanced Practice Provider-Certified Nurse Practitioner or Physician Power Station Operator. Post operative pain medication management is limited to the initial 6 weeks after surgery-a pain management referral can be requested after that time. NICOTINE HISTORY Patient states they are currently not using nicotine. They were counseled on the importance of remaining nicotine free before and after their surgery for optimal healing and surgery success including fusion. They were also informed that a positive nicotine test might result in surgery cancellation or their insurance may not agree to pay for surgery. Conservative Measures Documentation Patient states that Physical Therapy/Injections were completed at [facility] in [facility] within the last year. Please call the office [phone] if you become ill within two weeks of your surgery date. Please contact us with any questions [phone] phone or [phone] fax or [employer] message if not urgent. Pt verbalized understanding to all above instruction. [facility] in this [facility]10-[facility] Instructions* Patient Instructions* Glenda Alston RN - 12/03/2024 10:45 AM EDT Lumbar Discectomy L5/S1 Surgery education material, Preparing Skin Education education material provided for planned surgery with Dr Drew. Kaleighiclemili soap was provided to patient at clinic visit. The java websphere developer will contact you to arrange your surgery date and inform you if it will be [facility] ([address], [place] [address]) or [facility] ([address], [place] [address]). An automated call will be sent the day prior to your surgery with your arrival time, if you do not receive this call by 2 pm please call us. Pre-Operative Testing You will be scheduled with a [facility] nurse to go over your Medical History and Medications. After this call, you will be told if you need to meet with Anesthesia. Please complete pre-op labs and chestx-ray prior to your ComPAC appointment. Pre-op labs (CBC, PT/PTT/INR,BMP, Urinalysis Reflex to Culture, Type & Screen, MRSA Swab) and Chest X-Ray tests need to be completed 2-4 weeks prior to your surgery date at [facility] [address] between 7 am and 2 pm M-F. Please be aware that MRSA nose swab is done ONLY at Pre-Procedure Evaluation and Assessment Please call [phone] only if you cannot find their office located on the 2nd floor of [facility] near the lab-you must check in separately for this swab. If this pre-op testing is done outside of [facility], please call the office at [phone] when completed. These results should be faxedto [facility] at [phone]. Medication Guidelines Please consult your physician regarding any medications that might need held prior to surgery. If you have any questions on what medication to stop taking please call us at [phone]. Failure to stop taking some medications may result in your surgery being cancelled. Post operative pain medication management is limited to the initial 6 weeks after surgery-a pain management referral can be requested after that time if needed. Paperwork Guidelines Any STD/FMLA papers can be faxed to this department [phone] or sent via [employer] attachment andwill be faxed back to sender once completed. This office is limited to only being able to complete Short Term Disability/FMLA for a maximum of 12 weeks starting on date of surgery. If you need additional time off please contact your PCP to discuss possible options. Post-Operative Information Expect a two week post-op Nurse Only visit only if liban/sutures are placed during surgery. If nosutures/liban were placed, your first follow up appointment will be at 6-8 weeks after surgery with an PEPE (Advanced Practice Provider-Certified Nurse Practitioner or Physician Power Station Operator. Post operative pain medication management is limited to the initial 6 weeks after surgery-a pain management referral can be requested after that time. NICOTINE HISTORY Patient states they are currently not using nicotine. They were counseled on the importance of remaining nicotine free before and after their surgery for optimal healing and surgery success including fusion. They were also informed that a positive nicotine test might result in surgery cancellation or their insurance may not agree to pay for surgery. Please call the office [phone] if you become ill within two weeks of your surgery date. Please contact us with any questions [phone] phone or [phone] fax or [employer] message if not urgent. Pt verbalized understanding to all above instruction. * Attachments The following attachments cannot be sent through Care Everywhere. * Surgery Prep: General Info ([place]i) * Lumbar Microdiscectomy: Pre op ([place]) * Lumbar Microdiscectomy: Post op ([place]) * Spine Surgery Book ([facility]) ([place]) [facility] Telephone encounter Note* Telephone Encounter - Brooklynn Rose - 11/29/2024 10:31 AM EDT Please send nuerosurgery consult to [facility] Please saul as urgent pt states they will put her at the top of the list this way [facility] Miscellaneous Notes* Telephone Encounter - Brooklynn Rose - 11/29/2024 10:31 AM EDT Please send nuerosurgery consult to [facility] Please saul as urgent pt states they will put her at the top of the list this way documented in this encounterSaint [facility] [id number] History of Present illness Narrative* Milly Osman, BOX OFFICE ATTENDANT - 11/21/2024 7:30 AM EDT Images from the original note were not included. Physical Therapy Treatment Visit Patient Name: Chelle House Today's Date: 11/21/2024 ] Encounter Diagnoses Name Primary? Acute bilateral low back pain with right-sided sciatica Yes Visit number: 5 Timed Code Treatment: 39 minutes Total Treatment Time: 54 minutes Time In: 7:33 AM Time Out: 8:27 AM History: Pt states for the last 6 or 7 weeks she has been having significant pain in right leg. Hasnot been able to put on socks or other activities due to shooting pain. Was seen by chiro and massage without relief. Started muscle relaxer and steroid Tuesday night and some relief has been noted. Pt states steroid is for 5 days. Has taken 2 pills. Pt states muscle relaxer is 2-3x a day as needed.Can tell when pill is wearing off. 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 States sx's are usually better in standing but by end of day, right leg with be throbbing regardless. Precautions: [place] Subjective: Pt reports little to no change. Having MRI later this date R sided LB to LE posterior thigh numbness and tingling Pain: 5/10 at worse up to 810 Objective: PT Evaluation (11/07/2024) LUMBAR SPINE AROM: flex fingers to knees with increase pain, no change in sx's with repeat extension and mild right low back pain at end range, increase right low back pain at end ranges of bilateral SB. Tightness noted bilateral hip IR ROM Strength: right hip ER 4/5, left hip ER 4+/5; core strength is fair/good Muscle length: tightness right HS Palpation: min tenderness bilateral lumbar paraspinals and right buttock Special Test: pain with right slump testing Neurological: Reflexes: 2 bilateral patellar Myotomes: intact Dermatomes: intact Special Test: negative clonus bilateral Treatment: Manual Therapy: (15 minutes) Delivered manual ther pt prone PA mobs, sacral distractions ,STM/MFR/TPR to right posterior hip to reduce muscular tone. TTP around piriformis and proximal glute max. Therapeutic Exercise: (24 minutes) Guided pt through ther and flex Francoise based ex to improve core lumbar LE Strength, Endurance, Flexibility, ROM, HEP, Neural Mobilization, Power, and Core Stability as needed. Therapeutic Activity: Exercises to improve dynamic activities, functional tasks, functional mobility to return to prior activity level as needed. Neuromuscular re-education: Balance Training, Muscle Facilitation, Dynamic Stability, Core Stabilization, and Blood Flow Restriction Training (BFRT) as needed. Modalities: (15 minutes ) IFC/ P pt prone to low back to reduce muscle soreness Assessment: Visit #5 with complaints of right LB with radicular LE pain. Compliant with HEP, using heat, ice , muscle relaxers. No position of comfort. Continued with manual ther and hip strength to reduce strain on lower back. Educated Pt to do REIL or standing every 2 hours in en effort to reduce any derangement in lumbar, and to monitor how far distally the radicular pain travels. Pt was receptive. Ended session with IFC Having MRI later this date Outcome Measure: Back Index: 27/50 Rehab Diagnosis: right LE pain and weakness, low back pain, limited ROM and mobility Short Term Goal: To be met in 2 weeks Goal 1: Pt to be instructed in home exercise program. Half-Way Goals: To be met in 10 weeks Goal 1: Pt to report independence and compliance with home program. Goal 2: Pt to have full trunk ROM without complaints of increase pain at end ranges to assist with functional tasks. Goal 3: Pt to report pain no greater than 2/10 with function tasks, ADL's, and work related activities. Goal 4: Pt to achieve 4+/5 strength right hip to assist with functional activities and lifting. Goal 5: Pt to present with good core strength for improved lumbar stability. Goal 6: Pt to score no greater than 3/50 on Back Index indicating improved QOL. Pt will benefit from skilled PT for 2-3x/week from 11/07/2024 to 01/30/2025 to address the above impairments. I hereby deem this POC medically necessary. Please sign below. Date: documented in this encounterSaint Francis Medical [id number] History of Present illness Narrative* Ayde Kim, PT - 11/09/2024 7:30 AM EDT Images from the original note were not included. Physical Therapy Treatment Visit Patient Name: Chelle House Today's Date: 11/09/2024 Encounter Diagnoses Name Primary? Acute bilateral low back pain with right-sided sciatica Yes Visit number: 2 Timed Code Treatment Minutes: 7 minutes Total Treatment Time: 5 minutes Time In: 0730 Time Out: 1 History: Pt states for the last 6 or 7 weeks she has been having significant pain in right leg. Hasnot been able to put on socks or other activities due to shooting pain. Was seen by chiro and massage without relief. Started muscle relaxer and steroid Tuesday night and some relief has been noted. Pt states steroid is for 5 days. Has taken 2 pills. Pt states muscle relaxer is 2-3x a day as needed.Can tell when pill is wearing off. 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 States sx's are usually better in standing but by end of day, right leg with be throbbing regardless. Precautions: [place] Subjective: right leg feels a little better; however, pain is still pretty high when it happens Pain: 6-09/06 Objective: PT Evaluation (11/07/2024) LUMBAR SPINE AROM: flex fingers to knees with increase pain, no change in sx's with repeat extension and mild right low back pain at end range, increase right low back pain at end ranges of bilateral SB. Tightness noted bilateral hip IR ROM Strength: right hip ER 4/5, left hip ER 4+/5; core strength is fair/good Muscle length: tightness right HS Palpation: min tenderness bilateral lumbar paraspinals and right buttock Special Test: pain with right slump testing Neurological: Reflexes: 2 bilateral patellar Myotomes: intact Dermatomes: intact Special Test: negative clonus bilateral Treatment: Education: HEP education with demonstration, Educated on Eval Findings and POC Manual Therapy: (26 minutes) Passive ROM, Joint mobilization, Soft Tissue Mobilization, Myofascial Release, Muscle Energy Technique, Neural Mobilization, Myofascial Cupping, Dry Needling, IASTM, and Scar mobilization as needed. Manual lumbar distraction supine with ukrainian ball. Long axis distractionto right LE in supine. Lower lumbar distraction in left SL position. Therapeutic Exercise: () Strength, Endurance, Flexibility, ROM, HEP, Neural Mobilization, Power, and Core Stability as needed. Pt performed and instructed in home program this date; written instructions and pictures issued with good pt understanding. Therapeutic Activity: Exercises to improve dynamic activities, functional tasks, functional mobility to return to prior activity level as needed. Neuromuscular re-education: Balance Training, Muscle Facilitation, Dynamic Stability, Core Stabilization, and Blood Flow Restriction Training (BFRT) as needed. Modalities: Heat, Ice, Electrical Stimulation, Ultrasound, Cervical Mechanical Traction, Lumbar Mechanical Traction, Iontophoresis, and Fluidotherapy as needed. Assessment: Pt is 29 y/o female with complaints of right LE pain. Increase pain noted with right slump testing. Reviewed home program with good pt understanding. Pt instructed in self decompression from chair and using counter tops with good understanding. Will monitor response to lumbar distraction. Outcome Measure: Back Index: 27/50 Rehab Diagnosis: right LE pain and weakness, low back pain, limited ROM and mobility Short Term Goal: To be met in 2 weeks Goal 1: Pt to be instructed in home exercise program. Clerk Manager Goals: To be met in 10 weeks Goal 1: Pt to report independence and compliance with home program. Goal 2: Pt to have full trunk ROM without complaints of increase pain at end ranges to assist with functional tasks. Goal 3: Pt to report pain no greater than 2/10 with function tasks, ADL's, and work related activities. Goal 4: Pt to achieve 4+/5 strength right hip to assist with functional activities and lifting. Goal 5: Pt to present with good core strength for improved lumbar stability. Goal 6: Pt to score no greater than 3/50 on Back Index indicating improved QOL. Pt will benefit from skilled PT for 2-3x/week from 11/07/2024 to 01/30/2025 to address the above impairments. I hereby deem this POC medically necessary. Please sign below. Date: documented in this [facility]09-08-2025 History of Present illness Narrative* Chelle Santiago NP - 11/05/2024 12:30 PM EDT Images from the original note were not included. Subjective ?Quick Links Last Note in Specialty Snapshot Edit RFV/CC Edit Screenings Current Meds Patient ID: Chelle House is a 29 y.o. female who presents for Back Pain (Has had the pain since August 31 but got significantly worse beginning of September. Has seen a chiropractor and hasn't got any better ). Back Pain This is a recurrent problem. The current episode started more than 1 month ago. The problem occurs daily. The problem is unchanged. The pain is present in the gluteal and sacro-iliac. The quality of the pain is described as aching, cramping, shooting and stabbing. The pain radiates to the right knee and right thigh. The pain is at a severity of 9/10. The pain is The same all the time. The symptoms are aggravated by bending, position and twisting. Stiffness is present All day. Associated symptoms include leg pain, paresthesias and tingling. Pertinent negatives include no abdominal pain, bladder incontinence, bowel incontinence, chest pain, dysuria, fever, headaches, numbness, paresis, pelvic pain, perianal numbness, weakness or weight loss. Risk factors include lack of exercise and obesity. History of Present Illness The patient presents for evaluation of back pain. She began experiencing lower back pain in late June 2024, which was initially managed by a chiropractor who identified a misalignment in her hips. The pain improved temporarily but returned at the beginning of August 2024, localizing to one side and extending from her buttock down her leg. The pain isdescribed as a shooting sensation that occurs with certain movements. Despite weekly chiropractic sessions and massages, the pain persists. Her chiropractor suspects sciatica or a disc issue. Activities such as bending, twisting, sleeping, coughing, sneezing, and even laughing exacerbate the pain. She has been cautious with tizd-fil-yrvxthw medications due to her sister's history of kidney transpl ant but occasionally takes one at night. However, the relief is temporary, and she often wakes up due to discomfort. The pain has significantly impacted her daily activities, making it difficult for her to perform simple tasks such as putting on socks or shaving her legs. She acknowledges that her weight may be contributing to her condition and expresses a desire to regain mobility. Sleep: Reports difficulty finding a comfortable position to sleep, often waking up due to discomfort. FAMILY HISTORY Her sister had a kidney transplant. ?Quick Review Review Full History Edit History Meds - acetaminophen (Tylenol) 160 MG chewable tablet Apri 0.15-30 MG-MCG tablet buPROPion (Wellbutrin) 100 MG tablet cetirizine (ZyrTEC ALLERGY) 10 MG tablet naltrexone (Depade) 50 MG tablet --- PMH - Encounter for gynecological examination (general) (routine) without abnormal findings History of medical problems Irregular bleeding Obesity (BMI 30-39.9) Ovarian cyst Pain pelvic Objective ?Quick Links Add Vitals Timeline (Adult) Labs Imaging Results Review Trend Vitals ?? Avoid pulling in long tables of results. Comment on relevant results to support your medical decision making. BP 138/84 (BP Location: Right arm, Patient Position: Sitting, BP Cuff Size: Large adult) Pulse 84 Wt 289 lb SpO2 97% BMI 44.60 kg/m Physical Exam Vitals reviewed. Constitutional: Appearance: She is obese. HENT: Head: Normocephalic and atraumatic. Mouth/Throat: Mouth: Mucous membranes are moist. Eyes: Pupils: Pupils are equal, round, and reactive to light. Cardiovascular: Rate and Rhythm: Normal rate and regular rhythm. Pulses: Normal pulses. Heart sounds: Normal heart sounds. Pulmonary: Effort: Pulmonary effort is normal. Breath sounds: Normal breath sounds. Musculoskeletal: Cervical back: Normal range of motion and neck supple. Right lower leg: No edema. Left lower leg: No edema. Skin: General: Skin is warm and dry. Capillary Refill: Capillary refill takes less than 2 seconds. Findings: No rash. Neurological: General: No focal deficit present. Mental Status: She is alert and oriented to person, place, and time. Physical Exam Musculoskeletal: Positive straight leg raise test on the right, tightness in the piriformis muscle. ?Quick Links Full Problem List Cardiology GI Thyroid Assessment & Plan Assessment & Plan 1. Back pain: - The back pain could be due to inflammation in the piriformis muscle, which can mimic sciatic painby exerting pressure on the nerve. - An imaging study will be conducted today to assess the intervertebral disc space and check for stenosis. A referral for formal physical therapy has been made. - A round of steroids and muscle relaxants will be initiated. The muscle relaxant should be taken at night initially due to its potential sedative effect. If it causes excessive drowsiness, the dosage can be halved. The muscle relaxant can be taken up to three times a day. She is cautioned against using other anti-inflammatory medications concurrently with the steroids due to their potential impact on kidney function. She is advised to seek immediate medical attention at the hospital if she experiences any loss of bowel or bladder control. 2. Health maintenance: - She will receive her influenza vaccine during her annual physical in 12/2024. documented in this encounterSaint Francis Medical [id number] History of Present illness Narrative* Rell Cramer MD - 09/06/2024 3:50 PM EDT Skin Check Location: Patient requests a full body skin examination Dermatologic history: no history of skin cancer, history of atypical moles- moderately atypical mole removed last year from the upper back. Last visit: 1 year ago Lesions: Location: left arm Duration: years Associated symptoms: mole' Treatments: none All pertinent medical history, medications, and allergies were reviewed. General Exam: alert , oriented to person, place, and time , normal affect, well appearing Unaccompanied Scalp, Examined , exam limited by hair Right leg Examined Head, Face Examined Left leg Examined Neck Examined Right foot Examined Chest Examined Left foot Examined Back Examined Buttocks Examined Abdomen Examined Digits,nails: Examined Right arm Examined Patient wearing nail romansh, Denies dark streaks under finger nails, Denies darkstreaks on toenails Left arm Examined Lymphatics: Not examined Hands Examined Skin Exam 1. MELANOCYTIC NEVUS OF TRUNK Torso - Posterior (Back) Scattered benign appearing, regular brown to light brown melanocytic papules and macules with similar morphology Counseled regarding these benign growths. Rarely, a nevus can develop into malignant melanoma, so any changing nevi should be promptly re-evaluated. 2. LENTIGINES (3) Left Arm, Right Arm, Torso - Posterior (Back) Scattered dawson macules in sun-exposed areas. The patient was informed that lentigines are benign pigmented lesions that occur on sun-exposed andsun-damaged skin. No treatment is necessary. Recommended regular use of broad spectrum sunscreen SPF 30 or higher 3. HISTORY OF ATYPICAL NEVUS Left Upper Back The ABCD's (asymmetry, border, color, and diameter) of changing skin lesions were reviewed, and theappropriate use of sunscreen was outlined and recommended. 4. MULTIPLE BENIGN MELANOCYTIC NEVI OF BOTH UPPER EXTREMITIES, BOTH LOWER EXTREMITIES, AND TRUNK Generalized Dawson to brown macules and papules with similar morphologic features Counseled regarding these benign growths. Rarely, a nevus can develop into malignant melanoma, so any changing nevi should be promptly re-evaluated. 5. MELANOCYTIC NEVI OF FACE Head - Anterior (Face) Dawson-brown symmetric macules and papules Counseled regarding these benign growths. Rarely, a nevus can develop into malignant melanoma, so any changing nevi should be promptly re-evaluated. Next Visit: 1 year skin documented in this encounterSaint Francis Medical [id number] History of Present illness Narrative* Chelle Santiago NP - 01/20/2024 8:00 AM EST Images from the original note were not included. Chelle House is a 28 y.o. female presents with chief complaint of Annual Exam HPI: HPI Presents to the office for annual wellness. She is followed by OBGYN for annual women's wellness. Pap earlier this year. Follows with dental and opthalmology regularly. Has been working on weight loss. Taking wellbutrin-naltrexone combination, denies and side effects from the medication. Aware insurance may not cover today's wellness as last wellness was 01/24. She would like to proceed with wellness today. SUBJECTIVE: MEDICATIONS: Current Outpatient Medications Medication Instructions buPROPion (WELLBUTRIN) 100 mg, Oral, Daily, Take with naltrexone cetirizine (ZYRTEC ALLERGY) 10 mg, Daily desogestrel-ethinyl estradiol (Apri) 0.15-30 MG-MCG tablet 1 tablet, Oral, Daily naltrexone (DEPADE) 25 mg, Oral, Daily, Take with bupropion I have reviewed and reconciled the history and medication list with the patient today. REVIEW OF SYMPTOMS: Review of Systems OBJECTIVE: Visit Vitals BP 122/80 (BP Location: Left arm, Patient Position: Sitting, BP Cuff Size: Large adult) Pulse 92 Ht 5' 7.5 Wt 275 lb 9.6 oz SpO2 99% BMI 42.53 kg/m Smoking Status Never BSA 2.44 m Physical Exam Vitals reviewed. Constitutional: Appearance: She is obese. HENT: Head: Normocephalic and atraumatic. Right Ear: Tympanic membrane normal. Left Ear: Tympanic membrane normal. Nose: Nose normal. Mouth/Throat: Mouth: Mucous membranes are moist. Eyes: Extraocular Movements: Extraocular movements intact. Pupils: Pupils are equal, round, and reactive to light. Cardiovascular: Rate and Rhythm: Normal rate and regular rhythm. Pulses: Normal pulses. Heart sounds: Normal heart sounds. Pulmonary: Effort: Pulmonary effort is normal. Breath sounds: Normal breath sounds. Abdominal: General: Bowel sounds are normal. Palpations: Abdomen is soft. Tenderness: There is no abdominal tenderness. Musculoskeletal: General: Normal range of motion. Cervical back: Normal range of motion and neck supple. Right lower leg: No edema. Left lower leg: No edema. Skin: General: Skin is warm and dry. Capillary Refill: Capillary refill takes less than 2 seconds. Findings: No rash. Neurological: General: No focal deficit present. Mental Status: She is alert and oriented to person, place, and time. ASSESSMENT AND PLAN: Assessment/Plan Diagnoses and all orders for this visit: Encounter for wellness examination - Lipid panel; Future - Comprehensive metabolic panel; Future - TSH W/REFLEX TO FT4; Future -Wellness performed at [facility] today. Height, weight, BMI, problem list, and immunizations records reviewed. Dental care discussed with patient. Encouraged annual vision screenings and semi-annual dental care. Encouraged healthy eating habits, limit or eliminate junk food and sources of excess calories.Encouraged regular periods of exercise, 150 minutes of exercise weekly or amount appropriate to current level of function. Discussed family/friend/social support and importance of maintaining emotional connections. Follow up annually and as needed. Encounter for immunization - Flu vaccine greater than or equal to 3 years old, PF IM (IMM19) Acquired hypothyroidism (CMS/HCC) - TSH W/REFLEX TO FT4; Future -Check labs. Morbid obesity (CMS/HCC) - Lipid panel; Future - Comprehensive metabolic panel; Future -Increase wellbutrin to BID. Encourage healthy eating habits, increase physical exercise. Hypertriglyceridemia (CMS/HCC) - Lipid panel; Future Screening, lipid - Lipid panel; Future [facility]* Diagnosis Morbid obesity (CMS/HCC) Morbid obesity [facility]* Diagnosis Morbid obesity (CMS/HCC) Morbid obesity [facility]* Diagnosis Morbid obesity (CMS/HCC) Morbid obesity [facility]* Diagnosis Encounter for wellness examination- Primary Encounter for immunization Acquired hypothyroidism (CMS/HCC) Unspecified hypothyroidism Morbid obesity (CMS/HCC) Morbid obesity Hypertriglyceridemia (CMS/HCC) Pure hyperglyceridemia Screening, lipid [facility]* Diagnosis Morbid obesity (CMS/HCC) Morbid obesity [facility]* Diagnosis Morbid obesity (CMS/HCC) Morbid obesity [facility]* Diagnosis Melanocytic nevus of trunk- Primary Benign neoplasm of skin of trunk, except scrotum Lentigines History of atypical nevus Multiple benign melanocytic nevi of both upper extremities, both lower extremities, and trunk Melanocytic nevi of face [facility]* Diagnosis Acute bilateral low back pain with right-sided sciatica- Primary [facility]* Diagnosis Acute bilateral low back pain with right-sided sciatica [facility]* Diagnosis Acute bilateral low back pain with right-sided sciatica- Primary [facility]* Diagnosis Acute bilateral low back pain with right-sided sciatica- Primary [facility]* Diagnosis Acute bilateral low back pain with right-sided sciatica- Primary [facility]* Diagnosis Acute bilateral low back pain with right-sided sciatica- Primary [facility]* Diagnosis Bulge of lumbar disc without myelopathy- Primary [facility]* Diagnosis Acute bilateral low back pain with right-sided sciatica- Primary Lumbar disc herniation Displacement of lumbar intervertebral disc without myelopathy [facility]* Diagnosis Acute bilateral low back pain with right-sided sciatica- Primary [facility]* Diagnosis Lumbar radiculopathy- Primary Thoracic or lumbosacral neuritis or radiculitis, unspecified Neurogenic claudication Spinal stenosis, lumbar region, with neurogenic claudication Lumbar radiculopathy Thoracic or lumbosacral neuritis or radiculitis, unspecified Lumbar disc herniation Displacement of lumbar intervertebral disc without myelopathy [facility] Diagnosis body mass index of 40.0-49.9- Primary documented [facility] Narrative* Consultation (Routine) - AuthorizedSpecialtyDiagnoses / ProceduresReferred By ContactReferred To ContactPhysical Therapy Diagnoses Acute bilateral low back pain with right-sided sciatica Procedures [place] OFFICE/[facility]PATIENT [facility] 60 MINUTES Chelle Santiago, WAREHOUSE FOREMAN [address] [place] [address] Phone: tel: fax: Ayde Kim, PT Referral IDStatusReasonStart DateExpiration DateVisits RequestedVisits [id number] Consult and Treat [facility] HealthcareReason for visit Narrative* Consultation (Routine) - Authorized SpecialtyDiagnoses / ProceduresReferred By ContactReferred To ContactPhysical Therapy Diagnoses Acute bilateral low back pain with right-sided sciatica Procedures [facility] OFFICE[facility] 60 MINUTES Chelle Santiago NP [address] [place] [address] Phone: tel: fax: Ayde Kim, PT Referral IDStatusReasonStart DateExpiration DateVisits RequestedVisits [id number] Consult and Treat /[id number] [facility] HealthcareRecarondelet health for visit Narrative* Auth/CertSpecialtyDiagnoses / ProceduresReferred By ContactReferred To Contact Diagnoses Neurogenic claudication Lumbar radiculopathy Lumbar disc herniation Neurogenic claudication [R29.818] Lumbar radiculopathy [M54.16] Lumbar disc herniation [M51.26] Procedures CA CONDE FACETECTOMY & FORAMOTOMY 1 VRT SGM LUMBAR CA LAMNOTMY INCL W/DCMPRSN NRV ROOT 1 INTRSPC LUMBR DISCECTOMY POSTERIOR LUMBAR Maria D Ansari MD [address] [place] [address] Phone: tel: [facility]: [facility] [address] [place] [address] Referral IDStatusReasonStart DateExpiration DateVisits RequestedVisits [id number] [facility] Summary Purpose Family History No Family History Records FoundNo Family History Records FoundNo Family History Records FoundNo Family History Records Found Advance Directives No Advanced Directives Records FoundNo Advanced Directives Records FoundNo Advanced Directives Records FoundNo Advanced Directives Records Found Additional Source Comments INFORMATION SOURCE (unrecogn ized section and content) DATE CREATED AUTHOR 05/17/2021 [facility] DATE CREATED AUTHOR AUTHOR'S ORGANIZ ATION 06/23/2021 [facility] DATE CREATED AUTHOR AUTHOR'S ORGANIZ ATION 12/01/2024 [facility] DATE CREATED AUTHOR AUTHOR'S ORGANIZ ATION 12/25/2024 [facility] Reason for Visit (unrecogniz ed section and content) ReasonCommentsMed RefillReasonCommentsAnnual ExamReasonCommentsSkin CheckReason CommentsBack PainHas had the pain since August 31 but got significantly worse beginning of September. Has seen a chiropractor and hasn't got any betterReason CommentsNew Patient- Acute bilateral low back pain with right sided sciatica, lumbar disc herniation. Patient advised to bring a disc to clinicSpecialty Diagnoses / ProceduresReferred By ContactReferred To ContactNeurologic Surgery Diagnoses Acute bilateral low back pain with right-sided sciatica Lumbar disc herniation Chelle Santiago, [address] [place] [address] Phone: tel: fax: [facility] [address] [place] [address] Referral IDStatusReasonStart DateExpiration DateVisits RequestedVisits [id number] Care Teams (unrecognized sec tion and content) Team MemberRelationshipSpecialtyStart DateEnd Date Chelle Santiago NP [address] [place] [address] PCP - [place] Xgmmerjdto27/1/22 Vaishali Reyes MD [address] [place] [address] PCP - GeneralFamily Medicine07/06/22am MemberRelationshipSpecialtyStart DateEnd Chelle Santiago, JUNIOR [address] [place] [address] PCP - [place] Kcrpeyvkon65/1/22 Vaishali Reyes MD [address] [place] [address] PCP - GeneralFamily Medicine07/06/22am MemberRelationshipSpecialtyStart DateEnd Date Chelle Satniago, JUNIOR [address] [place] [address] PCP - [place] Rtgsxogmsk70/1/22 Vaishali Reyes MD [address] [place] [address] PCP - GeneralFamily Medicine07/06/22 MemberRelationshipSpecialtyStart DateEnd Date Chelle Santiago, WAREHOUSE FOREMAN [address] [place] [address] PCP - [place] Yiddzsyyme39/1/22 Vaishali Reyes MD [address] [place] [address] PCP - GeneralFamily Medicine07/06/22 MemberRelationshipSpecialtyStart DateEnd Date Chelle Santiago, JUNIOR [address] [place] [address] PCP - [place] Vusyacjuqj43/1/22 Vaishali Reyes MD [address] [place] [address] PCP - GeneralFamily Medicine07/06/22Team MemberRelationshipSpecialtyStart DateEnd Date Chelle Santiago [employer] [address] [place] [address] PCP - [place] Kaywtepwxa75/1/22 Vaishali Reyes MD [address] [place] [address] PCP - GeneralFamily Medicine07/06/22Team MemberRelationshipSpecialtyStart DateEnd Date Vaishali Reyes MD [address] [place] [address] PCP - GeneralFamily Medicine07/06/22Team MemberRelationshipSpecialtyStart DateEnd Date Vaishali Reyes MD [address] [place] [address] PCP - GeneralFamily Medicine07/06/22Team MemberRelationshipSpecialtyStart DateEnd Date Vaishali Reyes MD [address] [place] [address] PCP - GeneralFamily Medicine07/06/22Team MemberRelationshipSpecialtyStart DateEnd Date Vaishali Reyes MD [address] [place] [address] PCP - GeneralFamily Medicine07/06/22Team MemberRelationshipSpecialtyStart DateEnd Date Vaishali Reyes MD [address] [place] [address] PCP - GeneralFamily Medicine07/06/22 MemberRelationshipSpecialtyStart DateEnd Date Vaishali Reyes MD [address] [place] [address] PCP - GeneralFamily Medicine07/06/22 MemberRelationshipSpecialtyStart DateEnd Date Vaishali Reyes MD [address] [place] [address] PCP - GeneralFamily Medicine07/06/22 MemberRelationshipSpecialtyStart DateEnd Date Vaishali Reyes MD [address] [place] [address] PCP - GeneralFamily Medicine07/06/22 MemberRelationshipSpecialtyStart DateEnd Date Vaishali Reyes MD [address] [place] [address] PCP - GeneralFamily Medicine07/06/22 MemberRelationshipSpecialtyStart DateEnd Date Vaishali Reyes MD [address] [place] [address] PCP - GeneralFamily Medicine07/06/22 MemberRelationshipSpecialtyStart DateEnd Date Vaishali Reyes MD [address] [place] [address] PCP - GeneralFamily Medicine07/06/22Team MemberRelationshipSpecialtyStart DateEnd Date Vaishali Reyes MD [address] [facility] [place] [address] PCP - [facility] Medicine07/06/22Team MemberRelationshipSpecialtyStart DateEnd Date Vaishali Reyes MD [address] [place] [address] [facility] - [facility]22Team MemberRelationshipSpecialtyStart Date[facility] Date Chelle Santiago APRN [address] [facility] [place] [address] PCP - GeneralNurse Practitioner - [id number]/9/25Team MemberRelationshipSpecialty Start End Chelle Santiago APRN [address] [place] [address] PCP - GeneralNurse Practitioner - [id number]/9/25 Scheduled Active and Recently Administ ered Medications (unrecognized section and content) Medication Order/ Acetaminophen (TYLENOL) tablet 975 mg (COMPLETED) 975 mg, Oral, ONCE, 1 dose, On Tue12/18/24 at 0530, Maximum dose of acetaminophen is 4000 mg from all sources in 24 hours., Pre-op/Pre-Proc * 0604 (Given - Provider: Madai Urbina RN) Aprepitant (EMEND) capsule 40 mg (COMPLETED) 40 mg, Oral, ONCE, 1 dose, On Tue12/18/24 at 0530, Administer 40 mg (1 capsule) ONCE at least 30 minutes prior to induction of anesthesia. Swallow capsules whole. Do NOT crush, chew, or open., Pre-op/Pre-Proc * 0604 (Given - Provider: Madai Urbina RN) Gabapentin (NEURONTIN) capsule 300 mg (COMPLETED) 300 mg, Oral, ONCE, 1 dose, On Tue12/18/24 at 0530, Pre-op/Pre-Proc * 0604 (Given - Provider: Madai Urbina RN) Methocarbamol (ROBAXIN) 1,000 mg in Sodium chloride 0.9%, with overfill 120 mL (total volume) IVPB 1,000 mg, Intravenous, at 720 mL/hr, Administer over 10 Minutes, ONCE, 1 dose, On Tue12/18/24 at 0930, Recovery * 0930 (Canceled Entry - Provider: System Discharge - Comment: Automatically canceled at discontinue of medication order) methylPREDNISolone acetate (DEPO-MEDROL) injection 40 mg (COMPLETED) 40 mg, Intra-articular, ONCE, 1 dose, On Tue12/18/24 at 0730, Intra-op/Intra-Proc * 0730 (Due) * 0840 (Given - Provider: Evan Anderson MD) povidone-iodine (3M SKIN and NASAL ANTISEPTIC) 5 % topical solution 1 Application (COMPLETED) 1 Application, Nasal, 60 MIN PRE-OP, 1 dose, On Tue12/18/24 at 0530, (1) Use a tissue to clean theinside of both nostrils including the inside tip of the nostril. (2) Tilting the bottle slightly, dip one swab into solution and stir vigorously for 10 seconds. Withdraw the swab slowly to avoid wiping solution off during removal. (3) Insert swab comfortably into one nostril and rotate for 15 seconds covering all surfaces. Then focus on the inside tip of nostril and rotate for an additional 15 seconds. (4) Using a new swab, repeat steps 2 & 3 with the other nostril. (5) Repeat the application in both nostrils using a fresh swab each time. (6) Do not blow nose. If solution drips out of nose, it can be lightly dabbed with a tissue., Pre-op/Pre-Proc * 0604 (Given - Provider: Madai Urbina RN) Scopolamine (TRANSDERM-SCOP) patch 1 patch(Linked Group 1) 1 patch, Transdermal, ONCE, 1 dose, On Tue12/18/24 at 0530, Apply patch to site behind the ear. Rotate sites for each application. Do not cut or alter patch. Each patch delivers 1 mg over 72 hours.,Pre-op/Pre-Proc * 0604 (Patch Applied - Provider: Madai Urbina RN) * 1242 (Due: Patch Removed - Provider: System Discharge - Comment: Time automatically adjusted from order being discontinued) VERIFY LINKED PATCH PLACEMENT(Linked Group 1) Other, EVERY 12 HOURS, First dose on Tue12/18/24 at 0900, Until Discontinued, Confirm continued adhesion of scopolamine 1.5 mg/72hr patch at documented site. * 0900 (Canceled Entry - Provider: System Discharge - Comment: Automatically canceled at discontinue of medication order) Medication Order/ Lactated ringers IV solution Intravenous, at 75 mL/hr, CONTINUOUS, Starting on Tue12/18/24 at 0530, Until Tue12/18/24 at 1442,Pre-op/Pre-Proc * 0605 ($$New Bag$$ - Provider: Madai Urbina RN) * 0722 (Rate/Dose Change - Provider: Patrick Mondragon MD) * 0828 (Canceled Entry - Provider: Briana Augustin APRN-TROPHY ASSEMBLER) * 0856 (Canceled Entry - Provider: Briana Augustin APRN-TROPHY ASSEMBLER) Lactated ringers IV solution Intravenous, at 20 mL/hr, CONTINUOUS, Starting on Tue12/18/24 at 0930, Until Tue12/18/24 at 1442,Recovery * 0930 (Canceled Entry - Provider: System Discharge - Comment: Automatically canceled at discontinue of medication order) Sodium chloride 0.9% IV solution Intravenous, at 75 mL/hr, CONTINUOUS, Starting on Tue12/18/24 at 1030, Until Tue12/18/24 at 1442,Post-op/Post-Proc * 1030 (Canceled Entry - Provider: System Discharge - Comment: Automatically canceled at discontinue of medication order) Medication Order/ Acetaminophen (TYLENOL) tablet 650 mg 650 mg, Oral, EVERY 4 HOURS NEEDED, Starting on Tue12/18/24 at 1027, Until Tue12/18/24 at 1442, Mild Pain, Maximum dose of acetaminophen is 4000 mg from all sources in 24 hours., Post-op/Post-Proc ceFAZolin (ANCEF) 3 g in NS 125ml premade IVPB (COMPLETED) 3 g, Intravenous, Administer over 30 Minutes, HOLLOCK MAKER TO PROCEDURE, 1 dose, Starting on Tue12/18/24 at 0000, Until Tue12/18/24 at 0742, Other, Surgical Prophylaxis, Initiate antibiotic based on infusion time to complete administration 30-60 minutes prior to surgical incision. , Pre-op/Pre-Proc * 0742 ($$New Bag$$ - Provider: CANDIDO Shepard) diphenhydrAMINE (BENADRYL) injection 12.5 mg 12.5 mg, Intravenous, EVERY 30 MINUTES NEEDED, 2 doses, Starting on Tue12/18/24 at 0918, Until Tue12/18/24 at 1442, Itching, FIRST Line, Use second dose only if first dose did not result in confusion . Do not give if age is > 65yo, Recovery fentaNYL (SUBLIMAZE) injection 50 mcg 50 mcg, Intravenous, Administer over 2 Minutes, EVERY 5 MINUTES NEEDED, 6 doses, Starting on Tue12/18/24 at 0918, Until Tue12/18/24 at 1442, Moderate Pain, Severe Pain, Recovery hydrALAZINE (APRESOLINE) injection 5 mg 5 mg, Intravenous, EVERY 15 MINUTES NEEDED, 4 doses, Starting on Tue12/18/24 at 0918, Until Tue1 at 1442, SECOND line HTN, For SBP > 180. Use if HR < 60. Administer over 2 minutes. May give a total of 20 mg while in PACU. Notify MD if BP still uncontrolled after 2 mg and no other antihypertensive agents are ordered., Recovery HYDROmorphone (DILAUDID) injection 0.5 mg 0.5 mg, Intravenous, EVERY 10 MINUTES NEEDED, 8 doses, Starting on Tue12/18/24 at 0918, Until Tue12/18/24 at 1442, Moderate Pain, Severe Pain, Mild Pain, May give a total of 4mg in PACU., Recovery * 0855 (Given - Provider: CANDIDO Shepard) * 0925 (Given - Provider: Milan Kirkpatrick RN) * 0936 (Given - Provider: Milan Kirkpatrick RN) * 1008 (Given - Provider: Milan Kirkpatrick RN) Labetalol (NORMODYNE) injection 5 mg 5 mg, Intravenous, EVERY 15 MINUTES NEEDED, 4 doses, Starting on Tue12/18/24 at 0918, Until Tue12/18/24 at 1442, FIRST line HTN. , For SBP > 180. Hold if HR < 60 and give SECOND line agent. May give a total of 20 mg while in PACU. If blood pressure uncontrolled after 20mg of labetalol administered, use second line agent or notify MD. For vials: labetalol should be treated as a SINGLE USE VIAL. Discard remaining contents after one use., Recovery Lidocaine-epinephrine 1%-[id number] injection (CANCELED) NEEDED, Starting on Tue12/18/24 at 0807, Until Tue12/18/24 at 0913, Intra-op/Intra-Proc * 0807 (Given - Provider: Evan Anderson MD) Morphine injection 2 mg 2 mg, Intravenous, EVERY 3 HOURS NEEDED, Starting on Tue12/18/24 at 0918, Until Tue12/18/24 [id number], Other, Shivering, Recovery Ondansetron (ZOFRAN) tablet 4 mg(Linked Group 2) 4 mg, Oral, EVERY 6 HOURS NEEDED, Starting on Tue12/18/24 at 1027, Until Tue12/18/24 at 1442, Nausea / Vomiting, Post-op/Post-Proc Ondansetron 4mg/2ml (ZOFRAN) injection 4 mg 4 mg, Intravenous, ONCE NEEDED, 1 dose, Starting on Tue12/18/24 at 0918, Until Tue12/18/24 at 1442, Nausea / Vomiting, FIRST line antiemetic, Do not administer within 6 hours of intra-operative dose., Recovery Ondansetron 4mg/2ml (ZOFRAN) injection 4 mg(Linked Group 2) 4 mg, Intravenous, EVERY 4 HOURS NEEDED, Starting on Tue12/18/24 at 1027, Until Tue12/18/24 [id number], Nausea / Vomiting, Post-op/Post-Proc oxyCODONE (ROXICODONE) tablet 5 mg 5 mg, Oral, ONCE NEEDED, 1 dose, Starting on Tue12/18/24 at 0918, Until Tue12/18/24 at 1442, Moderate Pain, Recovery oxyCODONE-acetaminophen (PERCOCET) 5-325 MG per tablet 1 tablet(Linked Group 3) 1 tablet, Oral, EVERY 4 HOURS NEEDED, Starting on Tue12/18/24 at 1027, Until Tue12/18/24 at 1442, Moderate Pain, Use as initial dose. Higher dose may be administered if lower dose was previouslydocumented as ineffective and did not result in adverse effects (RR<10, decrease in level of consciousness)., Post-op/Post-Proc * 1103 (Given - Provider: Charissa Tom RN) oxyCODONE-acetaminophen (PERCOCET) 5-325 MG per tablet 2 tablet(Linked Group 3) 2 tablet, Oral, EVERY 4 HOURS NEEDED, Starting on Tue12/18/24 at 1027, Until Tue12/18/24 at 1442, Moderate Pain, Higher dose may be administered if lower dose was previously documented as ineffective and did not result in adverse effects (RR<10, decrease in level of consciousness). Decreaseback to lower dose if patient has adverse effects, or no PRN used in previous 12 hours., Post-op/Post-Proc * 1103 (See Alternative - Provider: Charissa Tom RN) Prochlorperazine (COMPAZINE) injection 5 mg 5 mg, Intravenous, EVERY 1 HOUR NEEDED, 2 doses, Starting on Tue12/18/24 at 0918, Until Tue12/18/24 at 1442, Refractory Nausea Vomiting, SECOND line antiemetic, Do not administer within 6 hours of intra-operative dose. For IV route: dilute dose with 10mL normal saline and give by slow IV push at a rate of 5mg/min. Maximum of 40mg/day., Recovery Sodium chloride 0.9 % irrigation (CANCELED) NEEDED, Starting on Tue12/18/24 at 0807, Until Tue12/18/24 at 0913, Intra-op/Intra-Proc * 0807 (Given - Provider: Evan Anderson MD - Comment: Added to sterile field) thrombin topical solution (CANCELED) NEEDED, Starting on Tue12/18/24 at 0750, Until Tue12/18/24 at 0913, Intra-op/Intra-Proc * 0750 (Given - Provider: Evan Anderson MD - Comment: To sterile field for neuro patties) Vancomycin (VANCOCIN) injection (CANCELED) NEEDED, Starting on Tue12/18/24 at 0840, Until Tue12/18/24 at 0913, Intra-op/Intra-Proc * 0840 (Given - Provider: Evan Anderson MD) Order Group 1: Scopolamine (TRANSDERM-SCOP) patch 1 patchJump to med 1 patch, Transdermal, ONCE, 1 dose, On Tue12/18/24 at 0530, Apply patch to site behind the ear. Rotate sites for each application. Do not cut or alter patch. Each patch delivers 1 mg over 72 hours.,Pre-op/Pre-Proc And VERIFY LINKED PATCH PLACEMENTJump to med Other, EVERY 12 HOURS, First dose on Tue12/18/24 at 0900, Until Discontinued, Confirm continued adhesion of scopolamine 1.5 mg/72hr patch at documented site. Group 2: Ondansetron 4mg/2ml (ZOFRAN) injection 4 mgJump to med 4 mg, Intravenous, EVERY 4 HOURS NEEDED, Starting on Tue12/18/24 at 1027, Until Tue12/18/24 [id number], Nausea / Vomiting, Post-op/Post-Proc Or Ondansetron (ZOFRAN) tablet 4 mgJump to med 4 mg, Oral, EVERY 6 HOURS NEEDED, Starting on Tue12/18/24 at 1027, Until Tue12/18/24 at 1442, Nausea / Vomiting, Post-op/Post-Proc Group 3: oxyCODONE-acetaminophen (PERCOCET) 5-325 MG per tablet 1 tabletJump to med 1 tablet, Oral, EVERY 4 HOURS NEEDED, Starting on Tue12/18/24 at 1027, Until Tue12/18/24 at 1442, Moderate Pain, Use as initial dose. Higher dose may be administered if lower dose was previouslydocumented as ineffective and did not result in adverse effects (RR<10, decrease in level of consciousness)., Post-op/Post-Proc Or oxyCODONE-acetaminophen (PERCOCET) 5-325 MG per tablet 2 tabletJump to med 2 tablet, Oral, EVERY 4 HOURS NEEDED, Starting on Tue12/18/24 at 1027, Until Tue12/18/24 at 1442, Moderate Pain, Higher dose may be administered if lower dose was previously documented as ineffective and did not result in adverse effects (RR<10, decrease in level of consciousness). Decreaseback to lower dose if patient has adverse effects, or no PRN used in previous 12 hours., Post-op/Post-Proc FOR RECORDS PERTAINING TO PATIENTS WHO ARE [...] BE BASED ON THE PRIMARY CLINICAL RECORDS. [employer] [facility]. provides no warranty or guarantee of the accuracy or completeness of information in this document.
[2025-02-02 08:49] LABS: Alanine Aminotransferase 19 U/L (14-59); Albumin Globulin Ratio 0.7; Albumin Level 3.1 g/dL (3.4-5.0); Alkaline Phosphatase 57 U/L (46-116); Anion Gap 14.6; Aspartate Amino Transferase 15 U/L (15-37); Blood Urea Nitrogen 10.0 mg/dL (7.0-18.0); Calcium 8.9 mg/dL (8.5-10.1); Carbon Dioxide 24.6 mmol/L (21.0-32.0); Chloride 103 mmol/L (98-107); Cholesterol 170 mg/dL (<=200); Estimated GFR (African America >60 (>=60 mL/min/1.73m^2); Estimated GFR (Non-African Ame >60 (>=60 mL/min/1.73m^2); Globulin 4.7 g/dL; Glucose 87 mg/dL (74-106); HDL Cholesterol 37 mg/dL (40-60); Potassium 4.2 mmol/L (3.5-5.1); Sodium 138 mmol/L (136-145); TSH W/ REFLEX FT4 4.007 uIU/mL (0.358-3.740); Total Protein 7.8 g/dL (6.4-8.2); Triglycerides 244 mg/dL (<=150); VLDL CHOLESTEROL 48.8 mg/dL
== END 2025-02-02 07:56 | disposition home or self-care (01) ==
LOC: LAB 07:58
PROVIDERS: PCP Nurse Practitioner Family; Visit Provider Nurse Practitioner Family
DX: Z00.00 Encounter for general adult medical examination without abnormal findings (principal); E78.1 Pure hyperglyceridemia; E66.01 Morbid (severe) obesity due to excess calories; E03.9 Hypothyroidism, unspecified; E55.9 Vitamin D deficiency, unspecified
CPT/HCPCS: 36415; 80053; 80061; 82306; 84439; 84443